=== PATIENT | female | born 1950 | race Caucasian/White ===

== ENCOUNTER → 2017-03-26 | Outpatient (CLI) | payer OTHER | LOC: BMCIMAGING 13:03 | PROVIDERS: ATTEND Internal Medicine | DX: Z12.31 Encounter for screening mammogram for malignant neoplasm of breast (principal) | CPT/HCPCS: G0202 ==

== ENCOUNTER 2017-09-25 15:34 | Inpatient (IN) | payer OTHER ==
[2017-09-25] MEDS ORDERED: ASPIRIN 81 MG CHEWABLE TAB PO ONE (15:48)
--- NOTE | 2017-09-25 15:59 | EDPHY ---
H & P Time Seen by Provider: 09/25/17 15:46 HPI/ROS: HPI Chest pain. 67-year-old female by private vehicle. She comes from the office of her primary care physician Dr. Felicia Del Castillo. She was seen for chest pain which she states she developed with exertion about 2 weeks ago while cross-country skiing. She reports that has been intermittent in nature and has been associated with exertion only up until several days ago when she noticed it just with walking. She describes this discomfort as a burning pressure like sensation mid upper chest. She has mild associated shortness of breath. Dr. Del Castillo described to me some concerning EKG changes. She has a negative troponin and negative D-dimer from her primary care physician's office. Cardiac risk factors include hypertension and family history. Her mother had heart disease. ROS: Constitutional: No fever, no chills. No weakness. Eyes: No discharge. No changes in vision. ENT: No sore throat. No nasal congestion or rhinorrhea. Respiratory: No cough. No shortness of breath. Cardiac: No chest pain, no palpitations. Gastrointestinal: No abdominal pain, no vomiting, no diarrhea. Genitourinary: No hematuria. No dysuria or increased frequency with urination. Musculoskeletal: No back pain. No neck pain. No myalgias or arthralgias. Skin: No rashes. Neurological: No headache. No focal weakness or altered sensation. Past medical history: Hypertension. She takes losartan for this. As above. Social history: Former smoker. Quit years ago. Drinks alcohol socially. Here with her . Physical Exam: General Appearance: Alert, no distress. This patient is responding to questions appropriately and in full sentences. This patient appears well- hydrated and well-nourished. Eyes: Pupils equal and round no pallor or injection. No lid edema, erythema or injection. Respiratory: There are no retractions, lungs are clear to auscultation with good air movement bilaterally. Cardiovascular: Regular rate and rhythm. No murmur. Gastrointestinal: Abdomen is soft and nontender, no masses, bowel sounds normal. No focal tenderness at McBurney's point. No Pino sign. Neurological: Motor sensory function is grossly intact. Cranial nerves are normal. Gait is normal. Skin: Warm and dry, no rashes. Musculoskeletal: Neck is supple and nontender. Extremities are symmetrical. All joints range without pain or impingement. Psychiatric: No agitation. No depression. Database: EKG: EKG time is 3:58 p.m.; EKG shows a narrow complex normal sinus rhythm with a ventricular rate of 51. Premature atrial complex noted. The HI, QRS, QT intervals are within normal limits. There are no ST-T wave changes indicative of ischemic or injury pattern. No evidence of right heart strain. Interpreted by me. Imaging: Chest x-ray AP portable; the cardiac mediastinal silhouette is unremarkable. No evidence of infiltrate or pneumothorax. No acute cardiopulmonary disease process noted. Interpreted by me. Procedures: Emergency department course: Vital signs reviewed. IV was placed. EKG was repeated and reviewed by myself. She currently does not have any chest pain. She was given 324 mg of chewed aspirin. A chest x-ray will be obtained. Discussed plan for admission. Patient consents. 4:20 p.m., patient re-evaluated. Resting comfortably at this time. Results of EKG and chest x-ray discussed with her and her . Plan for admission reviewed. They endorse. 4:30 p.m., spoke with on-call hospitalist, Dr. Alan. Case discussed in detail. He accepts this patient for admission. Patient's remaining emergency department course under my care uneventful. Patient admitted in stable condition to telemetry observation. Differential Diagnosis: The differential diagnosis on this patient includes but is not limited to exertional angina, acute coronary syndrome. Myocardial infarction, pulmonary embolism, myocarditis, pericarditis, aortic dissection unlikely. This represents a partial list of diagnoses considered. These considerations are based on history, physical exam, past history, reassessment and diagnostic testing. Smoking Status: Never smoked Constitutional: Initial Vital Signs Temperature (C) 37.0 C 09/25/17 15:41 Heart Rate 58 L 09/25/17 15:41 Respiratory Rate 16 09/25/17 15:41 Blood Pressure 176/99 H 09/25/17 15:41 O2 Sat (%) 97 09/25/17 15:41 O2 Delivery Mode Room Air Allergies/Adverse Reactions: codeine Allergy (Mild, Verified 09/25/17 16:15) Vomiting Home Medications: Medication Instructions Recorded Estradiol [Vivelle-Dot 0.075MG (*)] 0.075 mg TD SuWe@0800 09/25/17 Herbals/Supplements -Info Only 1 ea PO DAILY 09/25/17 Ibuprofen [Motrin (*)] 400 mg PO Q6H PRN 09/25/17 Losartan Potassium [Cozaar 25 mg 25 mg PO BID 09/25/17 (*)] Multivitamins [Multivitamin (*)] 1 each PO DAILY 09/25/17 Medical Decision Making - Data Points Medications Given: Discontinued Medications Aspirin (Aspirin) 324 mg PO EDNOW ONE Stop: 09/25/17 15:49 Last Admin: 09/25/17 16:02 Dose: 324 mg Departure - Departure Disposition: [facility] Inpatient Acute Clinical Impression: Chest pain Referrals: Felicia Del Castillo MD [Primary Care Provider] - As per Instructions
--- NOTE | 2017-09-25 16:00 | CPEKG ---
Heart Rate: 51 RR Interval: 1176 P-R Interval: 164 QRSD Interval: 76 QT Interval: 416 QTC Interval: 384 P [place]: -11 QRS [place]: 31 T Wave [place]: 40 EKG Severity - BORDERLINE ECG - EKG Impression: SINUS RHYTHM EKG Impression: ATRIAL PREMATURE COMPLEX EKG Impression: BORDERLINE T WAVE ABNORMALITIES Electronically Signed By: Adithya Mayer 25-Sep-2017 23:02:19
[2017-09-25] MEDS ORDERED: ONDANSETRON 4 MG/2 ML VIAL IVP PRN (16:31)
[2017-09-25] MEDS ORDERED: ONDANSETRON DISINTEGRATING 4 MG TAB PO PRN (16:31)
--- NOTE | 2017-09-25 17:19 | PDCONSULT ---
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 Felicia Del Castillo HPI: 67-year-old female presenting with acute chest pain characterized as burning sensation located in the upper anterior chest with onset of symptoms approximately 2 weeks ago, exacerbated with exertion, alleviated with rest. Patient reports that the symptoms have become particular noticeable during her weekend ski trips, and they have consistently occurred every time she exerts herself. The patient recently became concerned when she experienced the chest discomfort with very minimal ambulatory exertion, on the morning prior to this presentation. She went to see her primary care provider, had cardiac enzymes, D -dimer drawn, and was sent to the emergency department. She reports the discomfort is somewhat different than what she was experiencing 7 years ago when she had a workup for chest discomfort, consisting of a false positive EKG stress test, a reportedly normal nuclear medicine stress test, possible ASD on echocardiogram, an esophagram demonstrating some upper esophagus retention but no overt aspiration. She has not been taking any medications for acid reflux, and she takes ibuprofen on a daily basis for musculoskeletal aches and pains. Review of systems: Positive for chest discomfort, all other 10 point review systems is otherwise negative Past medical history: Previous history of chest discomfort approximately 7 years ago, unclear cause, palpitations 2 years ago, of abated without workup, chronic lower back pain Past surgical history: None, has never had a cardiac catheterization Social history: Patient smoked when she was in college, but has not smoked in many decades, she drinks 1-2 glasses of wine nightly, has never experienced alcohol withdrawal, she denies any other drugs, she is very physically active and has ski trip booked for the rest of the year every weekend Family history: Mother had a permanent pacemaker 70s, father had coronary artery disease in his 80s, no premature coronary disease Allergies: Adhesive tape produces hives, codeine produces vomiting, this is not a true allergy Physical exam: Systolic blood pressure 176, heart rate 58, temperature 37.0 degrees, SpO2 97% on room air, respiratory rate 16 General-no apparent distress, well-appearing woman, not obese Neuro-moving all 4 extremities, facial symmetry, alert awake oriented x3 Psych-no anxiety, no agitation, not encephalopathic HEENT-anicteric sclera, extraocular muscles intact Skin-no vesicular lesions or rash over the anterior chest Musculoskeletal-full range of motion bilateral shoulders without any pain, no tenderness to palpation over the anterior pectoralis muscles, full range of motion the neck without any pain Respiratory-lungs are clear to auscultation bilaterally, no crackles no wheezes Cardiac-regular rate and rhythm, no murmurs rubs or gallops appreciated, pulses are 2+ bilaterally Gastrointestinal-bowel sounds are present, abdomen is soft nontender nondistended no masses palpated Data: D-dimer negative, troponin negative, potassium 4.2, creatinine 0.8, white blood count 6800, hemoglobin 13.7 Imaging-normal chest x-ray, personally interpreted, EKG demonstrating normal sinus mechanism with a PC, personally interpreted Outside records-2010 esophagram demonstrating normal swallow, small retention the posterior pharynx, 03/26/2017 mammogram normal, read by Dimitri Vazquez Assessment: 67-year-old female presents with acute exertional chest pain Plan: 1. Chest pain. Acute, new problem this provider, further workup indicated. Potentially stable angina, with recent symptoms in the setting of very minimal exertion, raising the risk of worsening, warranting urgent evaluation -given patient's history of false positive EKG treadmill, will get nuclear medicine treadmill in the morning -initial troponin negative, does not require additional troponin measurement at this time, given that her last symptom was yesterday morning -educated the patient her if she experiences any recurrent symptoms overnight, she should notify the nurse immediately and we will draw cardiac enzymes and repeat EKG at that time -check lipid panel and hemoglobin A1c -monitor on telemetry for any potential arrhythmias which could be the potentiating cause of her discomfort -make NPO in a.m. for stress test, cardiac catheterization if stress test positive next-if stress test negative, hospital Medicine rounder to address non cardiopulmonary causes of chest discomfort in a.m. 2. Chronic lower back pain. Hold on use of NSAIDs overnight given potential for coronary artery disease, continue as needed Tylenol 3. Health maintenance screening. Patient and her have requested hepatitis C screening given that the patient has not had 1 performed in the past , this is appropriate given her age cohort Diet. Regular, NPO after midnight next prophylaxis. High risk patient, Lovenox 40 Code. Full Disposition. Anticipated discharge is 09/26, pending further workup as outlined above. I have discussed patient's presentation with Dr. Adithya Mayer in the emergency department, we both agree that the patient warrants urgent cardiac workup with stress testing in a.m.
[2017-09-25] MEDS: ACETAMINOPHEN 325 MG TAB PO PRN (21:47)
[2017-09-25] MEDS: LOSARTAN POTASSIUM 25 MG TAB PO SCH (21:48)
[2017-09-26 04:43] LABS: PLATELET COUNT 289 10^3/uL (150-400)
[2017-09-26 07:19] LABS: HEPATITIS B SURFACE ANTIGEN NEGATIVE (NEGATIVE)
[2017-09-26 07:25] LABS: HEPATITIS A ANTIBODY IGM (BCH) NEGATIVE (NEGATIVE); HEPATITIS B CORE AB IGM NEGATIVE (NEGATIVE)
[2017-09-26 07:37] LABS: HEPATITIS C ANTIBODY TOTAL NEGATIVE (NEGATIVE)
[2017-09-26] MEDS ORDERED: ESTRADIOL VIVELLE 0.075 MG PATCH TD SCH ×2 (08:00→20:00)
[2017-09-26] MEDS ORDERED: Herbals/Supplements -Info Only PO SCH (09:00)
[2017-09-26] MEDS: ASPIRIN EC 325 MG TAB PO SCH (09:06)
[2017-09-26] MEDS: LOSARTAN POTASSIUM 25 MG TAB PO SCH ×2 (09:06→21:37)
[2017-09-26] MEDS: MULTIVITAMINS 1 EACH TAB PO SCH (09:06)
[2017-09-26] MEDS: ENOXAPARIN 40 MG/0.4 ML SYR SC SCH (09:06)
--- NOTE | 2017-09-26 09:08 | ASMTCASEMG ---
Living Arrangements What is your living Answers: With Spouse arrangement? Who do you live with? Type Of Residence What kind of residence do Answers: House you live in? Discharge Plan Comments Coordination Status Comments Notes: Pt is a 67 y/o female admitted for chest pain. Pt will most likely d/c independent if her stress test comes back negative. No therapies ordered at this time. CM available for changes. Plan: Independent Date Signed: 09/26/2017 09:08 AM Electronically Signed By:VITO Herr
--- NOTE | 2017-09-26 13:57 | CPR ---
[f rep st] NONINVASIVE CARDIAC PROCEDURE REPORT DATE OF PROCEDURE: 09/26/2017 PROCEDURE: Exercise nuclear stress test. INDICATION: The patient is a 67-year-old female who developed burning chest discomfort while [employer] skiing up in [place] a few days ago. She then had some discomfort with downhill skiing and also noted some with hiking the other day. She has also had some exercise intolerance. Her risk factors for coronary artery disease include hypertension. She denies any history of hyperlipidemia, diabete s, ongoing tobacco use, or significant family history of premature coronary artery disease. PROCEDURE IN DETAIL: Consent was obtained, and the patient was placed on continuous telemetry. Her resting EKG revealed sinus bradycardia with a heart rate of 49 beats per minute. She has T-wave flat tening in the inferior leads as well as anterior lateral leads. She exercised on the treadmill for 9 minutes. She developed burning chest discomfort in the 2nd stage of exercise, which persisted until recovery. She had ST depression in the inferior leads of 2 mm as well as [address] elevation in AV R. Her ST-T changes and improved but did not completely recover 5 minutes into recovery. Her chest discomfort resolved within 30 minutes of recovery. Her blood pressure at rest was 138/80 and increas ed to 156/80. Returned to baseline 5 minutes into recovery. PLAN: Positive exercise treadmill test. I would have a low threshold to proceed with a coronary ang iogram. /[id number]/MODL
[2017-09-26] MEDS ORDERED: NITROGLYCERIN 0.4 MG BTL SL PRN (16:21)
[2017-09-26] MEDS ORDERED: TEMAZEPAM 15 MG CAP PO PRN (16:21)
[2017-09-26] MEDS ORDERED: ACETAMINOPHEN 325 MG TAB PO PRN (16:21)
--- NOTE | 2017-09-26 16:29 | PDCARCONS ---
Cardiology Consult Reason for Consult: Chest Pain. Chief Complaint: Chest Pain. Requesting Physician: Dr. Galeana. History of Present Illness: She is a pleasant 67-year-old female with no known cardiovascular disease. She has a benign cardiac risk factor profile and her baseline is very healthy. She has been experiencing symptoms of exertional chest discomfort now for approximately 2 weeks. These initially began when she was [employer] skiing up at [place]. At that time she developed a burning precordial chest discomfort when she was skiing on an uphill stretch. This lasted for about 20 minutes. At this point she reached the top of the hill, rested and her symptoms resolved. She was able to complete the rest of her route without difficulty. 2 days later she was at [facility] both scan with her and she developed similar symptoms. This occurred on a daily basis when she was downhill skiing for the 3 day trip. After this she went on vacation down to [place]. She noted that she had similar symptoms when she was walking briskly across the lobby of her hotel. She also had another event when she went hiking with her friend. She has had no resting symptoms. She denies palpitations. She has not had any dizziness or lightheadedness. She has noted no edema. She has not had any fever , chills or sweats and denies cough. She has not had any hemoptysis. As a result of these symptoms she went to see her primary care physician Dr. Cancino who advised her to come to the emergency department. She was admitted to the hospital where she has been stable. She underwent stress myocardial perfusion imaging today. On the treadmill portion she experienced a very mild burning precordial chest sensation. She also had [address] depressions in the inferior leads. Myocardial perfusion demonstrated reversible distal septal ischemia. History Information - Allergies/Home Medication List Allergies/Adverse Reactions: codeine Allergy (Mild, Verified 09/25/17 16:15) Vomiting Home Medications: Estradiol [Vivelle-Dot 0.075MG (*)] 0.075 mg TD SuWe@0800 09/25/17 [Last Taken 09/23/17] Herbals/Supplements -Info Only 1 ea PO DAILY 09/25/17 [Last Taken Unknown] Ibuprofen [Motrin (*)] 400 mg PO Q6H PRN 09/25/17 [Last Taken Unknown] Losartan Potassium [Cozaar 25 mg (*)] 25 mg PO BID 09/25/17 [Last Taken 09/25/17 ] Multivitamins [Multivitamin (*)] 1 each PO DAILY 09/25/17 [Last Taken 09/25/17] I have personally reviewed and updated: family history, medical history, social history, surgical history Past Medical History: - Social History Smoking Status: Never smoked Physical Exam Physical Exam: Temp Pulse Resp BP Pulse Ox 36.8 C 65 16 120/52 L 94 09/26/17 04:28 09/26/17 04:28 09/26/17 04:28 09/26/17 04:28 09/26/17 04:28 Constitutional: no apparent distress Eyes: PERRL Ears, Nose, Mouth, Throat: moist mucous membranes Cardiovascular: regular rate and rhythym, systolic murmur, No no murmur, rub, or gallop Peripheral Pulses: 2+: carotid (R), carotid (L) Respiratory: no respiratory distress, No clear to auscultation Gastrointestinal: normoactive bowel sounds, soft, non-tender abdomen, No hepatosplenomegally Skin: warm Neurologic: AAOx3 Lab and Imaging 09/26/17 03:28 09/26/17 03:28 WBC 7.24 10^3/uL (3.80-9.50) 09/26/17 03:28 RBC 3.66 10^6/uL (4.18-5.33) L 09/26/17 03:28 Hgb 12.7 g/dL (12.6-16.3) 09/26/17 03:28 Hct 36.3 % (38.0-47.0) L 09/26/17 03:28 MCV 99.2 fL (81.5-99.8) 09/26/17 03:28 MCH 34.7 pg (27.9-34.1) H 09/26/17 03:28 MCHC 35.0 g/dL (32.4-36.7) 09/26/17 03:28 RDW 12.2 % (11.5-15.2) 09/26/17 03:28 Plt Count 289 10^3/uL (150-400) 09/26/17 03:28 MPV 9.3 fL (8.7-11.7) 09/26/17 03:28 Neut % (Auto) 49.1 % (39.3-74.2) 09/26/17 03:28 Lymph % (Auto) 36.5 % (15.0-45.0) 09/26/17 03:28 Mccracken % (Auto) 10.2 % (4.5-13.0) 09/26/17 03:28 Eos % (Auto) 2.9 % (0.6-7.6) 09/26/17 03:28 Baso % (Auto) 1.0 % (0.3-1.7) 09/26/17 03:28 Nucleat RBC Rel Count 0.0 % (0.0-0.2) 09/26/17 03:28 Absolute Neuts (auto) 3.56 10^3/uL (1.70-6.50) 09/26/17 03:28 Absolute Lymphs (auto) 2.64 10^3/uL (1.00-3.00) 09/26/17 03:28 Absolute Monos (auto) 0.74 10^3/uL (0.30-0.80) 09/26/17 03:28 Absolute Eos (auto) 0.21 10^3/uL (0.03-0.40) 09/26/17 03:28 Absolute Basos (auto) 0.07 10^3/uL (0.02-0.10) 09/26/17 03:28 Absolute Nucleated RBC 0.00 10^3/uL (0-0.01) 09/26/17 03:28 Immature Gran % 0.3 % (0.0-1.1) 09/26/17 03:28 Immature Gran # 0.02 10^3/uL (0.00-0.10) 09/26/17 03:28 Sodium 141 mEq/L (135-145) 09/26/17 03:28 Potassium 4.3 mEq/L (3.5-5.2) 09/26/17 03:28 Chloride 105 mEq/L (97-110) 09/26/17 03:28 Carbon Dioxide 27 mEq/l (22-31) 09/26/17 03:28 Anion Gap 9 mEq/L (8-16) 09/26/17 03:28 BUN 12 mg/dL (7-23) 09/26/17 03:28 Creatinine 0.7 mg/dL (0.6-1.0) 09/26/17 03:28 Estimated GFR > 60 09/26/17 03:28 Glucose 80 mg/dL (70-100) 09/26/17 03:28 Hemoglobin A1c 5.5 % (4.0-6.0) 09/25/17 16:04 Estim Average Glucose 111 mg/dL (68-126) 09/25/17 16:04 Calcium 8.9 mg/dL (8.5-10.4) 09/26/17 03:28 Magnesium 2.2 mg/dL (1.6-2.3) 09/26/17 03:28 Total Bilirubin 0.6 mg/dL (0.1-1.4) 09/26/17 03:28 AST 18 IU/L (14-46) 09/26/17 03:28 ALT 30 IU/L (9-52) 09/26/17 03:28 Alkaline Phosphatase 41 IU/L (38-126) 09/26/17 03:28 Troponin I < 0.012 ng/mL (0.000-0.034) 09/26/17 03:28 Total Protein 6.2 g/dL (6.3-8.2) L 09/26/17 03:28 Albumin 3.7 g/dL (3.5-5.0) 09/26/17 03:28 Triglycerides 68 mg/dL (35-135) 09/26/17 03:28 Cholesterol 182 mg/dL (140-220) 09/26/17 03:28 Cholesterol Risk Factr 0.4 (0.2-1.0) 09/26/17 03:28 LDL Cholesterol, Calc 93 mg/dL (80-100) 09/26/17 03:28 LDL Risk Factor 0.5 (0.2-1.0) 09/26/17 03:28 VLDL Cholesterol 13 mg/dL (8-25) 09/26/17 03:28 Non-HDL Cholesterol 106 mg/dL (90-129) 09/26/17 03:28 HDL Cholesterol 76 mg/dL (40-85) 09/26/17 03:28 LDL/HDL Ratio 1.22 RATIO (1.00-3.22) 09/26/17 03:28 Cholesterol/HDL Ratio 2.39 RATIO (1.00-4.44) 09/26/17 03:28 TSH 3.700 uIU/mL (0.465-4.680) 09/26/17 03:28 Hepatitis A IgM Ab NEGATIVE (NEGATIVE) 09/26/17 03:28 Hep Bs Antigen NEGATIVE (NEGATIVE) 09/26/17 03:28 Hep B Core IgM Ab NEGATIVE (NEGATIVE) 09/26/17 03:28 Hepatitis C Antibody NEGATIVE (NEGATIVE) 09/26/17 03:28 Visualized and Interpreted Chest x-ray results: Yes Visualized and Interpreted EKG results: Yes EKG Interpretation: Positive for: normal sinsus rhythm Telemetry: Normal sinus rhythm. A/P Assessment: 67-year-old female who, at her baseline, is very healthy and very active who over the last 2 weeks has manifested symptoms of crescendo angina. Her stress myocardial perfusion imaging indicates reversible ischemia in the distribution of the left anterior descending currently, her symptoms are low level. Her stress myocardial perfusion imaging is consistent with an intermediate risk profile. As result of her myocardial perfusion imaging study and the degree of symptomatology was recommended that she undergo diagnostic coronary angiography tomorrow. The risks, benefits and alternatives were discussed with her today. She agrees to proceed. Further recommendations will be made pending the results of that study.
--- NOTE | 2017-09-26 18:13 | HOSPPROG ---
Hospitalist Progress Note Assessment/Plan: #Chest pressure: nuc med show septal ischemia. Plan for cath in morning. Check lipids -cont telemetry #Diet: NPO after MN #Disp: warrants inpt admission for cardiac cath Subjective: no chest pressure today Objective: Vital Signs Temp Pulse Resp BP Pulse Ox 37.2 C 66 13 140/65 H 95 09/26/17 16:34 09/26/17 16:34 09/26/17 16:34 09/26/17 16:34 09/26/17 16:34 Laboratory Results 09/26/17 03:28 09/26/17 03:28 09/25/17 09/26/17 09/27/17 05:59 05:59 05:59 Intake Total 0 Balance 0 - Physical Exam Constitutional: no apparent distress Eyes: PERRL Ears, Nose, Mouth, Throat: moist mucous membranes Cardiovascular: regular rate and rhythym, no murmur, rub, or gallop Respiratory: no respiratory distress, no rales or rhonchi Gastrointestinal: normoactive bowel sounds, soft, non-tender abdomen Musculoskeletal: full muscle strength Neurologic: AAOx3, CN II-XII Intact Psychiatric: interacting appropriately ICD10 Worksheet Patient Problems: Problems Problem Status Onset Chest pain Acute
[2017-09-26] MEDS: ACETAMINOPHEN 325 MG TAB PO PRN (21:37)
[2017-09-27 04:33] LABS: PLATELET COUNT 307 10^3/uL (150-400)
[2017-09-27 04:45] LABS: INR 1.02 (0.83-1.16); PROTIME(PATIENT) 13.6 SEC (12.0-15.0)
[2017-09-27] MEDS ORDERED: diphenhydrAMINE 25 MG CAP PO ONE ×2 (06:00→10:30)
[2017-09-27] MEDS ORDERED: ASPIRIN EC 325 MG TAB PO ONE ×2 (06:00→10:30)
[2017-09-27] MEDS ORDERED: NS 1,000 ML IV ONE (06:00)
[2017-09-27] MEDS ORDERED: FAMOTIDINE 20 MG TAB PO ONE ×2 (06:00→10:30)
[2017-09-27] MEDS ORDERED: DIAZEPAM 5 MG TAB PO ONE ×2 (06:00→10:30)
--- NOTE | 2017-09-27 06:34 | PDMN ---
Medical Necessity Medical necessity: change to IP; los>2mn for ongoing eval and rx for chest pressure , with nuc med test positive for septal ischemia; requires cardiac cath and continued telemetry; per order and progress note 09/26/17
--- NOTE | 2017-09-27 08:44 | CPEKG ---
Heart Rate: 46 RR Interval: 1304 P-R Interval: 180 QRSD Interval: 74 QT Interval: 452 QTC Interval: 396 P [place]: 18 QRS [place]: 33 T Wave [place]: 55 EKG Severity - BORDERLINE ECG - EKG Impression: SINUS BRADYCARDIA EKG Impression: BORDERLINE T ABNORMALITIES, ANT-LAT LEADS Electronically Signed By: Kvng Early 29-Sep-2017 08:25:26
--- NOTE | 2017-09-27 09:39 | PDPROPOC ---
Sedation Plan of Care Sedation Plan of Care: vital signs stable, mental status noted, patient educated of risks, benefits, alternatives, patient can tolerate sedation ASA Classification: ASA 2 Planned drugs: fentanyl, midazolam Mallampati Score: Class 1 Mallampati Reference Image: Patient passed 3-3-2 rule?: Yes
--- NOTE | 2017-09-27 09:39 | PDHPUP ---
History & Physical Update H&P update statement: This history and physical update is based on an assessment of the patient which was completed after admission or registration (within 24 hours), but prior to the surgery/procedure. H&P update: H&P reviewed & patient examined, no change in patient's condition since H&P completed
[2017-09-27] MEDS ORDERED: LIDOCAINE 1% 300 MG/30 ML SDV ONE (10:24)
[2017-09-27] MEDS ORDERED: fentaNYL 100 MCG/2 ML INJ ONE (10:24)
[2017-09-27] MEDS ORDERED: MIDAZOLAM 2 MG/2 ML VIAL ONE ×2 (10:25)
[2017-09-27] MEDS ORDERED: IOPAMIDOL (ISOVUE-370) 150 ML BTL IV ONE (10:25)
[2017-09-27] MEDS ORDERED: HEPARIN 10,000 UNIT/10 ML MDV (1,000 UNIT/ML) ONE ×2 (10:25→11:59)
[2017-09-27] MEDS ORDERED: VERAPAMIL 5 MG/2 ML VIAL ONE (10:25)
--- NOTE | 2017-09-27 11:26 | PDDXCAT ---
Diagnostic Cath Note - . Date: 09/27/17 Special Education Assistant: Rose Marie Indication: other (New onset crescendo angina. Abnormal stress myocardial perfusion imaging study with intermediate risk features suggesting disease of the left anterior descending coronary artery.) - Procedure Access: right wrist Procedure: left heart catheterization, coronary angiography, left ventriculogram - Materials Left Heart Cath size: 5F Left Heart Cath materials: JL3.5, JR4.0, pigtail - Findings-Left Heart Catheterization LM: Moderate caliber vessel which appears to be about 3.0 mm. Appropriate bifurcation into the left anterior descending and circumflex. No angiographic disease. LAD: Moderate caliber vessel. Single principal diagonal branch. High-grade (80 %) lesion in the mid LAD immediately distal to the 1st diagonal which is the principal diagonal branch. The ostium of this diagonal branch is not directly involved in this lesion and contains a 20% lesion. LCX: Moderate caliber vessel in the proximal segment. Becomes diminutive immediately after the origin of a multi branching obtuse marginal. Minimal luminal irregularities without obstruction. RCA: Moderate caliber vessel. Dominant in appearance. The PDA and a small- caliber posterolateral arcade are noted. Luminal irregularities with no obstruction. EDP: 107/12/17 mmHg. LVEF: 60-65%. Wall motion: Normal wall motion. - Findings-Right Heart Catheterization AO: 99/52/73 mmHg. Complications: None. Estimated blood loss: <50ml Assessment: 1. Clinical presentation with crescendo angina. 2. Stress myocardial perfusion imaging study demonstrating ischemia in the distribution of the left anterior descending. 3. Angiography indicating a high-grade mid LAD lesion. 4. Preserved left ventricular systolic function with no wall motion abnormalities. 5. Mildly elevated end-diastolic pressure. Plan: She will be referred to my partner Dr. Pelon Strauss for percutaneous intervention of the LAD. Patient Problems: Problems Problem Status Onset Chest pain Acute
[2017-09-27] MEDS ORDERED: NITROGLYCERIN 1,500 MCG/15 ML VIAL MISC ONE ×2 (11:29→11:39)
[2017-09-27] MEDS ORDERED: PRASUGREL HCL 10 MG TAB ONE (12:03)
[2017-09-27] MEDS ORDERED: ADENOSINE 90 MG/30 ML VIAL IV ONE (12:06)
[2017-09-27] MEDS ORDERED: PRASUGREL HCL 10 MG TAB PO ONE (12:29)
[2017-09-27] MEDS ORDERED: ATROPINE SULFATE 1 MG/10 ML SYR IVP PRN (12:29)
--- NOTE | 2017-09-27 12:29 | HOSPPROG ---
Hospitalist Progress Note Assessment/Plan: #Chest pressure: nuc med show septal ischemia. -mid-LAD lesion stented. Effient, ASA 325mg, statin. No BB with bradycardia -cont telemetry #Diet: cardiac #Disp: warrants inpt admission tonight for telemetry, can likely DC in morning Subjective: no CP Objective: Vital Signs Temp Pulse Resp BP Pulse Ox 36.9 C 54 L 16 117/68 93 09/27/17 07:06 09/27/17 07:06 09/27/17 07:06 09/27/17 07:06 09/27/17 07:06 Laboratory Results 09/27/17 03:19 09/27/17 03:19 09/26/17 09/27/17 09/28/17 05:59 05:59 05:59 Intake Total 740 Balance 740 PT 13.6 SEC (12.0-15.0) 09/27/17 03:19 INR 1.02 (0.83-1.16) 09/27/17 03:19 - Physical Exam Constitutional: no apparent distress Ears, Nose, Mouth, Throat: moist mucous membranes Cardiovascular: regular rate and rhythym, No edema Respiratory: no respiratory distress Gastrointestinal: normoactive bowel sounds Genitourinary: no bladder fullness Skin: warm Musculoskeletal: full muscle strength, other (radial cath site with good pulse, no hematoma) Neurologic: AAOx3 Psychiatric: interacting appropriately ICD10 Worksheet Patient Problems: Problems Problem Status Onset Chest pain Acute
--- NOTE | 2017-09-27 12:37 | PDCTREPORT ---
Cardiothoracic Procedure Rpt Cardiothoracic Procedure Report: Procedure: Primary stenting of the proximal LAD followed by intravascular ultrasound and assessment of left main stenosis by fractional flow reserve. Indications: Critical proximal LAD disease with crescendo angina and abnormal treadmill. Narrative: After reviewing diagnostic angiograms by my partner Dr. Trotter was elected to proceed with PCI. Patient was anticoagulated with heparin. Attempts at accessing the LAD from the radial artery were made but the wire and catheter would not advance be on the mid forearm. In light of critical stenosis of the LAD the radial artery access site was abandoned. A 6 Persian sheath was inserted in the right femoral artery. Using a 6 Persian EBU 3.5 guiding catheter left main coronary selectively intubated. Using a 0.014 intuition wire the LAD stenosis was crossed and a wire placed in the distal vessel. A 3.0 x 24 mm synergy stent was placed across the lesion. Position confirmed in two views and deployed using a single inflation. Repeat angiogram showed step-up step-down. Distal to the stent a myocardial bridge became more apparent. Patient was administered intracoronary nitroglycerin. The wire was withdrawn revealing a mid LAD myocardial bridge. I want to confirm this diagnosis as well as reassess LAD stent size. Intravascular ultrasound was performed with slow pullback confirming a mid LAD bridge. The stent was well apposed. Proximal to the stent was significant soft atheroma seen with what appears to be a necrotic core. This plaque extended back into the left main giving us a 68% by Q CA stenosis of the distal left main. The area was 6.8 mm2. Films were reviewed with my partner Dr. Trotter and Dr. Gant. We proceeded with fractional flow reserve assessment of the left main and LAD. After maximal hyperemia achieved with intravenous adenosine FFR was 0.93. Wires were withdrawn. Final orthogonal angiograms were obtained. The patient is taken to recovery for continued care. Arteriotomy will be closed with an Angio-Seal. The radial artery arteriotomy will be closed with a TR band. Patient be loaded with Effient as a antiplatelet agent. High-dose statin therapy Vamsi inhibition beta-blockade with close clinical follow-up. Conclusions: Unstable angina status post successful PCI and stenting of the proximal LAD. Residual soft atheroma involving the proximal and ostial LAD and left main coronary artery. Myocardial bridge. Results discussed with patient and family. Patient Problems: Problems Problem Status Onset Chest pain Acute
--- NOTE | 2017-09-27 13:00 | CPEKG ---
Heart Rate: 42 RR Interval: 1429 P-R Interval: 192 QRSD Interval: 82 QT Interval: 484 QTC Interval: 405 P Perry: 43 QRS Perry: 34 T Wave Perry: 14 EKG Severity - ABNORMAL ECG - EKG Impression: SINUS BRADYCARDIA EKG Impression: NONSPECIFIC T ABNORMALITIES, ANTERIOR LEADS Electronically Signed By: Kvng Early 29-Sep-2017 08:25:32
--- NOTE | 2017-09-27 15:20 | SOAPPROG ---
EMIL Progress Note Assessment/Plan: Assessment: 67-year-old female with minimal cardiovascular risk factors presents with classic symptoms of crescendo angina. Myocardial perfusion imaging suggests LAD territory ischemia. She really has very little blood pressure and heart rate that would allow aggressive antianginal therapy. Additionally, her study is clearly intermediate risk. Therefore, we will proceed with coronary angiography for definitive diagnosis. Further recommendations will be made following that study. 09/27/17 15:20 Subjective: She is doing well today. She did not have any chest discomfort overnight. Cardiac enzymes remain negative. Objective: Vital Signs Temp Pulse Resp BP Pulse Ox 36.9 C 54 L 16 117/68 93 09/27/17 07:06 09/27/17 07:06 09/27/17 07:06 09/27/17 07:06 09/27/17 07:06 Laboratory Results 09/27/17 03:19 09/27/17 03:19 09/26/17 09/27/17 09/28/17 05:59 05:59 05:59 Intake Total 740 Balance 740 PT 13.6 SEC (12.0-15.0) 09/27/17 03:19 INR 1.02 (0.83-1.16) 09/27/17 03:19 Physical Exam - Physical Exam General Appearance: WD/WN, no apparent distress Neck: non-tender, full range of motion Respiratory: lungs clear, No crackles, No rales, No rhonchi Cardiac/Chest: regular rate, rhythm, No edema, No gallop, No JVD Peripheral Pulses: 2+: carotid (R), carotid (L) Abdomen: non-tender, soft Pelvic Exam: deferred Rectal: deferred Neuro/Psych: alert, oriented x 3 ICD10 Worksheet Patient Problems: Problems Problem Status Onset Chest pain Acute
[2017-09-27] MEDS: ASPIRIN EC 325 MG TAB PO SCH (17:24)
[2017-09-27] MEDS: ENOXAPARIN 40 MG/0.4 ML SYR SC SCH (17:25)
[2017-09-27] MEDS: ATORVASTATIN CALCIUM 40 MG TAB PO SCH (17:39)
[2017-09-27] MEDS: MULTIVITAMINS 1 EACH TAB PO SCH (17:39)
[2017-09-27] MEDS: CETIRIZINE 10 MG TAB PO SCH (17:39)
[2017-09-27] MEDS: LOSARTAN POTASSIUM 25 MG TAB PO SCH ×2 (17:39→20:14)
[2017-09-27] MEDS: ACETAMINOPHEN 325 MG TAB PO PRN ×2 (17:46→22:54)
[2017-09-28 06:31] LABS: PLATELET COUNT 278 10^3/uL (150-400)
[2017-09-28 08:51] VITALS: BP 135/83; PULSE 65; RESP 14; TEMP 98.4; O2SAT 96
[2017-09-28] MEDS ORDERED: PRASUGREL HCL 10 MG TAB PO SCH (09:00)
--- NOTE | 2017-09-28 09:17 | CPEKG ---
Heart Rate: 61 RR Interval: 984 P-R Interval: 160 QRSD Interval: 76 QT Interval: 376 QTC Interval: 379 P Fairmont: 23 QRS Fairmont: 26 T Wave Fairmont: 51 EKG Severity - BORDERLINE ECG - EKG Impression: SINUS RHYTHM EKG Impression: BORDERLINE T ABNORMALITIES, ANT-LAT LEADS Electronically Signed By: Kvng Early 29-Sep-2017 08:25:36
--- NOTE | 2017-09-28 09:40 | PDCARPN ---
Cardiology Progress Note Assessment/Plan: Assessment: She is doing well following PCI/ stenting of her mid LAD . She does have fairly extensive plaque noted on intravascular ultrasound specifically at the ostium of the LAD and distal left main. She was further evaluated with fractional flow reserve without any indication of obstructive disease. This is , however, concerning And certainly warrants very aggressive medical therapy. She will continue with dual anti-platelet therapy for the next year. She will also be treated with very aggressive antihyperlipidemic therapy. She was started on Lipitor 80 mg which he will take before bed. At this point I think she can gradually start to ramp up her activity level. She has been enrolled in cardiac rehab. She is stable for discharge. I would like her to follow up with me within the next 2 weeks. Subjective: She is doing well today. She has not had any chest discomfort. She has minimal pain at the right radial access site and right groin access site. On telemetry she has been bradycardic. There are periods of time where she may have a junctional rhythm. She has, however, not experienced any significant symptoms. Objective: Vital Signs (8 Hrs) Temp Pulse Resp BP Pulse Ox 09/28/17 08:46 36.9 C 65 14 135/83 H 96 09/28/17 05:00 37.0 C 59 L 18 127/68 H 95 Intake/Output (24 Hrs) 09/27/17 09/28/17 09/29/17 05:59 05:59 05:59 Intake Total 740 1640 Balance 740 1640 Intake: Oral (ml) 740 1640 IV Intake (ml) 0 Other: Weight 62.1 kg 62.1 kg Intake Quantity npo Yes Sufficient Number of Voids Toilet 1 2 2 Number of Stools Toilet 2 Result Diagrams: 09/28/17 06:19 09/28/17 06:19 - Physical Exam Constitutional: WDWN Ears, Nose, Mouth, Throat: moist mucous membranes Cardiovascular: regular rate and rhythm, no murmurs, no rubs, no gallops, other (Right radial and right groin access sites are intact with minimal ecchymoses, she has no right femoral arterial bruit) Peripheral Pulses: 2+: carotid (R), carotid (L) Respiratory: clear to auscultate bilat Neurologic: AAOx3 ICD10 Worksheet Patient Problems: Problems Problem Status Onset Chest pain Acute
[2017-09-28] MEDS: CETIRIZINE 10 MG TAB PO SCH (09:45)
[2017-09-28] MEDS: ASPIRIN EC 325 MG TAB PO SCH (09:45)
[2017-09-28] MEDS: MULTIVITAMINS 1 EACH TAB PO SCH (09:45)
[2017-09-28] MEDS: ATORVASTATIN CALCIUM 40 MG TAB PO SCH (09:45)
[2017-09-28] MEDS: LOSARTAN POTASSIUM 25 MG TAB PO SCH (09:46)
[2017-09-28] MEDS: ENOXAPARIN 40 MG/0.4 ML SYR SC SCH (09:47)
--- NOTE | 2017-09-28 11:45 | ASDISCHSUM ---
Discharge Information Plan Status:Home with No Needs Medically Cleared to Leave:09/27/2017 Discharge Date:09/27/2017 CM D/C Disposition:Home, Routine, Self-Care ADT D/C Disposition:Home, Routine, Self-Care Projected Discharge Date:09/27/2017 Transportation at D/C: Discharge Delay Reason: Follow-Up Date:09/27/2017 Discharge Slot: Final Diagnosis: Placement Information Patient Contact Information Contact Name:KIRSTEN Relationship: Address:[address] City:[place] Alternate Phone: [facility]/Zip Code:[place] [address] Email: Financial Information Financial Class:Medicare Primary Plan Desc:MEDICARE INPATIENT Primary Plan Number:[id number] Secondary Plan Desc:KASIA LA O Secondary Plan Number:[id number] Assessment Information [facility] Initial CM Assessment Living Arrangements What is your living Answers: With Spouse arrangement? Who do you live with? Type Of Residence What kind of residence do Answers: House you live in? Discharge Plan Comments Coordination Status Comments Notes: Pt is a 67 y/o female admitted for chest pain. Pt will most likely d/c independent if her stress test comes back negative. No therapies ordered at this time. CM available for changes. Plan: Independent Date Signed: 09/26/2017 09:08 AM Electronically Signed By:VITO Herr LACE LACE Comorbidities - select Answers: Other Notes: hypertension all that apply # of Emergency department Answers: 0 visits in the last 6 months Score: 1 Date Signed: 09/28/2017 11:44 AM Electronically Signed By:Lotus Harp RN Intervention Information Intervention Type:*SIMMONS-Signed Date of Service:09/26/2017 10:02 AM Patient Type:Observation Staff Member:Vivian Wakefield Hours: Discipline: Severity: Comment:
--- NOTE | 2017-09-28 12:27 | PDDCSUM ---
Discharge Summary Discharge Summary: 67 Yo female admitted with crescendo angina. Had Stent placed to proximal LAD. Large plaque at ostrum of LAD. Cards has recommended aggressive medical mgmt. Had some bradycardia and therefore BB not started Start Atorvastatin 80mg daily Aspirin 325mg daily Effient Coozar f/u with Cards DDX: #Chest pressure: nuc med show septal ischemia. -mid-LAD lesion stented. Effient, ASA 325mg, statin, ARB. No BB with bradycardia Exam: NAD AAOX3 RRR CTA B S/NT/ND MEDS: SEE MED REC F/U: WITH CARDS TOTAL TIME SPENT ON DC INCLUDING BEDSIDE ROUNDS WITH NURSE IS 35 MINS
== END 2017-09-28 12:40 | disposition home or self-care (01) | DRG 247 ==
LOC: F2W 18:14 → OBSVTOIN 09-26 17:30
PROVIDERS: ADMIT Internal Medicine; ATTEND Internal Medicine
PROC: 027034Z Dilation of Coronary Artery, One Artery with Drug-eluting Intraluminal Device, Percutaneous Approach (ICD-10-PCS; principal; 2017-09-27)
PROC: B2151ZZ Fluoroscopy of Left Heart using Low Osmolar Contrast (ICD-10-PCS; 2017-09-27)
PROC: B2111ZZ Fluoroscopy of Multiple Coronary Arteries using Low Osmolar Contrast (ICD-10-PCS; 2017-09-27)
PROC: 4A023N8 Measurement of Cardiac Sampling and Pressure, Bilateral, Percutaneous Approach (ICD-10-PCS; 2017-09-27)
DX: I25.110 Atherosclerotic heart disease of native coronary artery with unstable angina pectoris (principal); I10 Essential (primary) hypertension; G89.29 Other chronic pain; Z87.891 Personal history of nicotine dependence; Z82.49 Family history of ischemic heart disease and other diseases of the circulatory system
CPT/HCPCS: A9500; C1753; C1760; C1769; C1874; C1887; C9600; G0378; G0472; J0153; J1644; J1650; J2250; J3010; Q9967

== ENCOUNTER 2018-07-27 12:45 | Inpatient (IN) | payer OTHER ==
[2018-07-27] MEDS ORDERED: ASPIRIN 81 MG CHEWABLE TAB PO ONE (13:25)
--- NOTE | 2018-07-27 13:26 | CPEKG ---
Test Reason : OPEN Blood Pressure : / mmHG Vent. Rate : 061 BPM Atrial Rate : 061 BPM P-R Int : 159 ms QRS Dur : 076 ms QT Int : 416 ms P-R-T Axes : -08 012 037 degrees QTc Int : 419 ms Sinus rhythm Confirmed by He Miller ([id number]) on 07/27/2018 1:26:05 PM Referred By: Confirmed By:He Miller
--- NOTE | 2018-07-27 13:28 | EDPHY ---
H & P Time Seen by Provider: 07/27/18 12:58 HPI/ROS: CHIEF COMPLAINT: Chest pain HISTORY OF PRESENT ILLNESS: The patient is a 68-year-old female with a history of coronary artery disease and stent placement in September 2017. Patient states she had surgery for bladder suspension approximately 5 weeks ago. She has slowly increased her activity. Last night she was walking up a [place] to a show at [place] [employer]. She developed substernal chest burning and pressure. She stopped in improved. She had to stop 2 more times while walking up the hill. Patient denies any chest pain at this time. No shortness of breath. No cough. No leg pain or swelling. REVIEW OF SYSTEMS: 10 systems were reveiwed and are negative with the exception of the elements mentioned in the history of present illness. Past Medical/Surgical History: Includes coronary artery disease, esophageal spasm, hypertension, bladder prolapse Past surgical history: Includes bladder suspension Social history: Patient does not smoke Smoking Status: Never smoked Physical Exam: Vitals noted GENERAL: Well-appearing, in no acute distress, alert. HEENT: Eyes normal to inspection, normal pharynx, no signs of dehydration. NECK: Normal, supple. RESPIRATORY: Clear to auscultation bilaterally, no rales, rhonchi or wheezing. CVS: Regular rate and rhythm, no rubs, murmurs, or gallops. ABDOMEN: Soft, nontender, nondistended, no organomegaly. BACK: Normal to inspection, no CVA tenderness. SKIN: Normal color, no rash, warm, dry. No pallor. EXTREMITIES: No pedal edema, no calf tenderness, no Homans sign or cords, no joint swelling. NEURO/PSYCH: Alert and oriented, normal mood and affect, normal motor sensory exam. Constitutional: Initial Vital Signs Temperature (C) 36.8 C 07/27/18 12:49 Heart Rate 65 07/27/18 12:49 Respiratory Rate 18 07/27/18 12:49 Blood Pressure 141/79 H 07/27/18 12:49 O2 Sat (%) 98 07/27/18 12:49 O2 Delivery Mode Room Air Allergies/Adverse Reactions: codeine Allergy (Mild, Verified 09/25/17 16:15) Vomiting adhesive Allergy (Verified 07/27/18 12:48) Home Medications: Medication Instructions Recorded Estradiol [Vivelle-Dot 0.075MG (*)] 0.075 mg TD SuWe@0800 09/25/17 Herbals/Supplements -Info Only 1 ea PO DAILY 09/25/17 Losartan Potassium [Cozaar 25 mg 25 mg PO BID 09/25/17 (*)] Multivitamins [Multivitamin (*)] 1 each PO DAILY 09/25/17 Aspirin EC [Aspirin EC 325 mg (*)] 325 mg PO DAILY #30 tab 09/28/17 Medical Decision Making ED Course/Re-evaluation: In the emergency department I discussed possible etiologies with the patient and . I answered all her questions. IV was placed. Laboratory studies , EKG and chest x-ray were ordered. Patient was given aspirin 324 mg orally. EKG shows normal sinus rhythm, normal rate, normal axis, normal intervals. There are no ST or T-wave abnormalities. EKG is normal as interpreted by me. Differential Diagnosis: My differential includes but is not limited to ACS, acute DC, PE, pericarditis, myocarditis, esophageal spasm, GERD, peptic ulcer disease Departure - Departure Disposition: [facility] Inpatient Acute Clinical Impression: Chest pain Qualifiers: Chest pain type: unspecified Qualified Code(s): R07.9 - Chest pain, unspecified Condition: Good Referrals: Felicia Del Castillo MD [Primary Care Provider] - As per Instructions
[2018-07-27 13:55] LABS: INR 0.99 (0.83-1.16); PROTIME(PATIENT) 13.3 SEC (12.0-15.0)
[2018-07-27 14:08] LABS: PLATELET COUNT 354 10^3/uL (150-400)
--- NOTE | 2018-07-27 16:19 | GHP ---
DATE OF ADMISSION: 07/27/2018 CHIEF COMPLAINT: Chest pain. HISTORY OF PRESENT ILLNESS: This is a 68-year-old female with a history of coronary artery disease s tatus post percutaneous coronary intervention in September of this year who presents with chest pain. This occurred last night when she was walking up the hill to go to a show at [facility]. Desc ribed as a burning substernal, not associated with any shortness of breath, not radiating. This is e xactly like the pain she experienced that led her to get her previous stent. She has noticed this pa in occasionally now. It does seem to be exertional. It does resolve with rest. Notably, she was ad mitted here in September, at which point she had a stent placed to her mid LAD. Also noted was a dist al left main lesion as well as an ostial LAD lesion, which were not intervened upon after FFR. She h as been maintained on medical therapy. She follows with Dr. Trotter, who stopped her Effient last st after she noted severe bruising. She is compliant with aspirin at this time. She has not tolerat ed a beta arik due to bradycardia. PAST MEDICAL/SURGICAL HISTORY: 1. Coronary artery disease. 2. Recent bladder suspension. 3. Chronic low back pain. MEDICATIONS: Please see medication reconciliation. ALLERGIES: Adhesive tape. Codeine, which produces vomiting, though is not a real allergy. FAMILY HISTORY: Her mother had a permanent pacemaker, lived to her 90s. SOCIAL HISTORY: She quit smoking over 40 years ago. She drinks wine occasionally. REVIEW OF SYSTEMS: 10-point review of systems is conducted and is negative except per HPI. PHYSICAL EXAM: VITAL SIGNS: Blood pressure 137/85, heart rate 59, respiration rate 16, satting at 9 6% on room air. Temperature is 36.8. GENERAL: The patient is a very pleasant female who is resting comfortably in no acute distress. HEENT: Normocephalic, atraumatic. CARDIOVASCULAR: Regular rate and rhythm. No murmurs, rubs, or gallops. No elevated JVD. No lower extremity edema. PULMONARY: Shows her to be breathing comfortably. Lungs are clear to auscultation bilaterally. ABDOMEN: Soft , nontender, nondistended. SKIN: Shows no rash. : No Nichols. NEUROLOGIC: Alert and oriented x3 . She is moving all extremities. PSYCHIATRIC: Normal mood and affect. LABS: White count is 9.8, INR 0.99. Basic metabolic panel is normal. Troponin is negative. DATA: 1. Discussed with Dr. Early, and he will consult. 2. Chest x-ray, which I personally viewed and interpreted, shows normal heart size. There is nothin g acute on here. 3. EKG, which I personally viewed and interpreted, shows sinus rhythm. It is nonischemic. IMPRESSION AND PLAN: Chest pain/coronary artery disease: Concerning for recurrent angina. She did have previous abnormalities on her last catheterization which were not intervened upon after fraction al flow reserve. I have discussed all this with Dr. Early. He will evaluate her films and consider catheterization versus Cardiothoracic Surgery consult. We will place her on progressive care unit, monitor on telemetry, get 2 more sets of cardiac enzymes. This is a high-risk diagnosis. Will rashi nue her cardiac medications. /[id number]/MODL
[2018-07-27] MEDS: PRAVASTATIN SODIUM 10 MG TAB PO SCH (20:38)
[2018-07-27] MEDS: LOSARTAN POTASSIUM 25 MG TAB PO SCH (20:38)
[2018-07-27] MEDS: POLYETHYLENE GLYCOL 3350 17 GM PKT PO PRN (20:47)
[2018-07-27] MEDS: LORazepam 1 MG TAB PO PRN (22:46)
[2018-07-28] MEDS: LOSARTAN POTASSIUM 25 MG TAB PO SCH ×2 (08:28→20:04)
[2018-07-28] MEDS: ESTRADIOL VIVELLE 0.075 MG PATCH TD SCH (08:29)
[2018-07-28] MEDS: ASPIRIN EC 81 MG TAB PO SCH (08:29)
--- NOTE | 2018-07-28 09:37 | PDCARPN ---
Cardiology Progress Note Chief Complaint: chest discomfort Assessment/Plan: Assessment: Patient is a 68 y/o female with history of HLP (on therapy), HTN, and CAD s/p PCI to the proximal LAD in Sep 2017, who presents to [facility] ER with complaints of chest discomfort with ambulation. Patient had been noting some degree of " chest burning" over the past several weeks, but not to a degree that was overtly concerning to the patient. Her son-in-law is a nurse in [employer], and he had voiced some concerns about the symptoms given her history. On Sunday, while walking rapidly up hill to [place] for a [employer], the patient noted severe substernal chest pains to the degree that she had to stop walking several times. No radiation into shoulder, neck, or jaw. Similar location to symptoms that were noted in Sep 2017 prior to LAD PCI, but more severe this time. Compliance with medical therapy has been good, but Effient was stopped after 6 months given (a) pending surgery and (b) severe bruising. Ongoing use of ARB, statin, and low dose ASA therapy. Overnight, no symptoms were noted. No cardiac biomarker elevation has been noted, but ST/T wave changes are noted on telemetry (ST depression). Patient was told that there was mild residual proximal LAD stenosis noted (proximal to the PCI) at the conclusion of her Sep intervention. Review of the films with ~20% stenosis appreciated. Plan: (1) Would proceed with angiography this morning (2) Continue therapy on ASA for life (3) Statins should continue as at present - review of labs with good LDL control noted (4) Should there be in stent stenosis, would recommend lifelong antiplatelet therapy (5) Further recommendations after diagnostic angiography has been completed Subjective: No active cardiovascular complaints this morning Reviewed/Discussed With: hospitalist Objective: Vital Signs (8 Hrs) Temp Pulse Resp BP Pulse Ox 07/28/18 09:12 61 07/28/18 07:32 36.7 C 63 16 118/72 94 07/28/18 04:00 36.8 C 56 L 14 129/69 H 93 Intake/Output (24 Hrs) 07/27/18 07/28/18 07/29/18 05:59 05:59 05:59 Intake Total 340 Balance 340 Intake: Oral (ml) 340 Other: Weight 60.328 kg Number of Voids Toilet 2 Result Diagrams: 07/27/18 13:00 07/27/18 13:00 Cardiac Labs: Cardiac Lab Results (72 Hrs) 07/28/18 07/27/18 03:18 20:56 Troponin I < 0.012 < 0.012 Telemetry: normal sinus rhythm with ST/T wave changes noted - Physical Exam Constitutional: WDWN, healthy appearing, no apparent distress Eyes: PERRL, EOMI Ears, Nose, Mouth, Throat: moist mucous membranes Cardiovascular: regular rate and rhythm, no murmurs, no rubs, no gallops Peripheral Pulses: 2+: dorsalis-pedis (R), dorsalis-pedis (L) Respiratory: clear to auscultate bilat, no crackles, no wheezes Gastrointestinal: normoactive bowel sounds Skin: no rashes, no edema Musculoskeletal: no muscular tenderness Neurologic: AAOx3, CN II-XII grossly intact Psychiatric: cooperative, interactive, following commands ICD10 Worksheet Patient Problems: Problems Problem Status Onset Chest pain Acute
--- NOTE | 2018-07-28 09:38 | PDPROPOC ---
Sedation Plan of Care Sedation Plan of Care: vital signs stable, mental status noted, patient educated of risks, benefits, alternatives, patient can tolerate sedation ASA Classification: ASA 3 Planned drugs: fentanyl, midazolam Mallampati Score: Class 2 Mallampati Reference Image: Patient passed 3-3-2 rule?: Yes
[2018-07-28] MEDS ORDERED: fentaNYL 100 MCG/2 ML INJ ONE (10:03)
[2018-07-28] MEDS ORDERED: LIDOCAINE 1% 300 MG/30 ML SDV ONE (10:03)
[2018-07-28] MEDS ORDERED: HEPARIN 10,000 UNIT/10 ML MDV (1,000 UNIT/ML) ONE (10:04)
[2018-07-28] MEDS ORDERED: VERAPAMIL 5 MG/2 ML VIAL ONE (10:04)
[2018-07-28] MEDS ORDERED: IOPAMIDOL (ISOVUE-370) 150 ML BTL IV ONE (10:04)
[2018-07-28] MEDS ORDERED: MIDAZOLAM 2 MG/2 ML VIAL ONE (10:04)
--- NOTE | 2018-07-28 10:56 | ASMTCMCOM ---
CM Note CM Note Notes: Patient admitted via ED with c/o chest pain. Known CAD. To phlebotomist medical lab assistant today. CM to follow for needs. Likely to dc independent when medically cleared for discharge. Plan: TBD Date Signed: 07/28/2018 10:56 AM Electronically Signed By:Libia Mills RN
--- NOTE | 2018-07-28 11:17 | PDDXCAT ---
Diagnostic Cath Note - . Date: 07/28/18 Project Management It Specialist: Sharath Indication: CCC Class III and IV angina on medical treatment - Procedure Access: right groin Procedure: left heart catheterization, coronary angiography, left ventriculogram - Materials Left Heart Cath size: 6F Left Heart Cath materials: standard multipack (JL4, JR4, pigtail) - Findings-Left Heart Catheterization LM: Medium length vessel with a "napkin ring" focal stenosis in the mid portion of the vessel >70% with haziness. Bifurcation into the LAD and LCX vessels LAD: Medium diameter vessel with mild ostial disease (30%) and moderate in stent stenosis (50%). The first diagonal (D1, principal) continues have ostial disease (80%). Moderate tortuosity to remainder of the LAD. LCX: Medium diameter vessel with several smallish obtuse marginals. Tortuosity was noted from mid vessels to distal. No luminal irregularities were noted. RCA: Medium diameter vessel with supply to the PDA. No luminal irregularities were noted. EDP: 20 mm Hg LVEF: >65% Wall motion: normal Complications: none Estimated blood loss: <50ml Closure method: Angioseal Assessment: Patient is a 68 y/o female with history of CAD s/p PCI to the pLAD in Sep 2017, with return of similar symptoms to pre PCI. Angiography today with critical mid Left Main disease as well as moderate to severe mid in stent stenosis to the LAD. Normal LVEF. Plan: CT surgery consult Intervention: none Patient Problems: Problems Problem Status Onset Chest pain Acute
[2018-07-28] MEDS ORDERED: NITROGLYCERIN 0.4 MG BTL SL PRN (11:47)
[2018-07-28] MEDS ORDERED: ATROPINE SULFATE 1 MG/10 ML SYR IVP PRN (11:47)
--- NOTE | 2018-07-28 13:56 | HOSPPROG ---
Hospitalist Progress Note Assessment/Plan: # CAD, LM lesion not amenable to PCI; hx PCI to LAD 09/2017 - CT surgery consult - cont asa/losartan Subjective: s/p cath today; discussed wtih Dr Early, patient and Objective: Vital Signs Temp Pulse Resp BP Pulse Ox 37.1 C 57 L 16 132/75 H 95 07/28/18 13:19 07/28/18 13:19 07/28/18 13:19 07/28/18 13:19 07/28/18 13:19 07/27/18 07/28/18 07/29/18 05:59 05:59 05:59 Intake Total 340 200 Output Total 0 Balance 340 200 PT 13.3 SEC (12.0-15.0) 07/27/18 13:00 INR 0.99 (0.83-1.16) 07/27/18 13:00 - Time Spent With Patient Time Spent with Patient: greater than 35 minutes Time Spent with Patient: Greater than 35 minutes spent on this patients care, greater than 50% of time spent counseling, educating, and coordinating care regarding the above mentioned plan. - Physical Exam Constitutional: other (lying flat; NAD) ICD10 Worksheet Patient Problems: Problems Problem Status Onset Chest pain Acute
--- NOTE | 2018-07-28 15:18 | PDMN ---
Medical Necessity Medical necessity: [facility] Cardiovascular Surgery or Procedure GRG 68 yo s/p PCI Sep 2017 presents w/ CP. Initially OBS for cardiac workup. Cardiology consulted, concerning for recurrent angina. Urgent heart cath reveals critical mid Left Main disease as well as moderate to severe mid in stent stenosis to the LAD. Cardiothoracic surgery consult ordered. Pt requires additional MN for CT consult, potential CT surgery. Hx CAD, recent bladder suspension and chronic low back pain. Change to IP status 07/28/18 @6234 per MD order
[2018-07-28] MEDS: ACETAMINOPHEN 325 MG TAB PO PRN (17:00)
[2018-07-28] MEDS: PRAVASTATIN SODIUM 10 MG TAB PO SCH (20:04)
[2018-07-28] MEDS: POLYETHYLENE GLYCOL 3350 17 GM PKT PO PRN (20:06)
--- NOTE | 2018-07-28 20:22 | GCON ---
DATE OF CONSULTATION: 07/28/2018 REFERRING PHYSICIAN: Kvng Early MD Patient seen at the request of Dr. Early with the patient's permission. IMPRESSION: 1. Unstable angina pectoris with left main and proximal left anterior descending in-stent stenosis. 2. Status post recent bladder suspension. 3. Chronic low back pain. RECOMMENDATIONS: This patient is to stay in hospital and undergo coronary artery revascularization. We have tentatively scheduled her for Sunday mid morning. Certainly, if she develops further chest pain unresponsive to medical therapy, we would proceed with surgery more urgently. Risks and compli cations, including bleeding, infection, stroke, heart attack, and , all less than 1%, were revie wed with the patient and her . She agrees to stay for surgery. CHIEF COMPLAINT: Chest pain. HISTORY OF CHIEF COMPLAINT: This is a 68-year-old, very active lady, underwent stenting to her LAD i n September. She had recurrence of symptoms with severe chest pain the night before admission, was ad mitted and underwent diagnostic cath which showed ostial LAD and left main stenosis, high-grade with normal LV function. MEDICATIONS: Please see medication reconciliation. ALLERGIES: Adhesive tape, codeine which causes vomiting but not truly allergic. FAMILY HISTORY: Noncontributory. SOCIAL HISTORY: She quit smoking over 40 years ago. She drinks wine occasionally. She is active, s kis, bikes and runs. She is a retired teacher. Her was present and accompanied her. REVIEW OF SYSTEMS: All 10-point systems were conducted and were negative except for HPI. PHYSICAL EXAMINATION: VITAL SIGNS: Blood pressure 130/76, respirations 14. HEENT: Normocephalic, PERRLA, EOMI. NECK: Without bruit, adenopathy, or thyromegaly. HEART: Rate regular without murmur , S3, or S4. LUNGS: Clear. ABDOMEN: Soft, nontender. Bowel sounds are active. RECTAL AND GENITA L: Deferred. NEUROLOGIC: She is grossly intact. /[id number]/MODL
[2018-07-28] MEDS: LORazepam 1 MG TAB PO PRN (22:19)
[2018-07-29] MEDS: ASPIRIN EC 81 MG TAB PO SCH (08:13)
[2018-07-29] MEDS: LOSARTAN POTASSIUM 25 MG TAB PO SCH ×2 (08:13→22:04)
--- NOTE | 2018-07-29 08:40 | HOSPPROG ---
Hospitalist Progress Note Assessment/Plan: # CAD, unstable angina with a LM lesion not amenable to PCI - hx PCI to LAD 09/2017 - plan CABG tomorrow - cont asa/losartan Subjective: no CP overnight Objective: Vital Signs Temp Pulse Resp BP Pulse Ox 36.4 C 61 16 120/70 92 07/29/18 07:31 07/29/18 07:31 07/29/18 07:31 07/29/18 07:31 07/29/18 07:31 07/28/18 07/29/18 07/30/18 05:59 05:59 05:59 Intake Total 1875 Balance 1875 PT 13.3 SEC (12.0-15.0) 07/27/18 13:00 INR 0.99 (0.83-1.16) 07/27/18 13:00 high risk needing major surgery with unstable angina - Physical Exam Constitutional: no apparent distress, appears nourished Cardiovascular: regular rate and rhythym, no murmur, rub, or gallop Respiratory: no respiratory distress, no rales or rhonchi, clear to auscultation Gastrointestinal: normoactive bowel sounds, soft, non-tender abdomen, no palpable masses ICD10 Worksheet Patient Problems: Problems Problem Status Onset Chest pain Acute
[2018-07-29] MEDS ORDERED: BISACODYL 10 MG SUPP PR PRN (08:46)
[2018-07-29] MEDS ORDERED: LACTULOSE 20 GM/30 ML UDCUP PO PRN (08:46)
[2018-07-29] MEDS ORDERED: MAGNESIUM HYDROXIDE 30 ML UDCUP PO PRN (08:46)
--- NOTE | 2018-07-29 09:28 | PDCARPN ---
Cardiology Progress Note Chief Complaint: Patient is doing well today. CT surgery saw the patient yesterday to discuss CABG Assessment/Plan: Assessment: 07-29-18 Patient doing well today. No cardiovascular complaints. Pre operative testing is being performed, and patient is scheduled for surgery tomorrow. 07-28-18 Patient is a 68 y/o female with history of HLP (on therapy), HTN, and CAD s/p PCI to the proximal LAD in Sep 2017, who presents to [facility] with complaints of chest discomfort with ambulation. Patient had been noting some degree of " chest burning" over the past several weeks, but not to a degree that was overtly concerning to the patient. Her son-in-law is a nurse in [facility], and he had voiced some concerns about the symptoms given her history. On Sunday, while walking rapidly up hill to [place] for a [employer], the patient noted severe substernal chest pains to the degree that she had to stop walking several times. No radiation into shoulder, neck, or jaw. Similar location to symptoms that were noted in Sep 2017 prior to LAD PCI, but more severe this time. Compliance with medical therapy has been good, but Effient was stopped after 6 months given (a) pending surgery and (b) severe bruising. Ongoing use of ARB, statin, and low dose ASA therapy. Overnight, no symptoms were noted. No cardiac biomarker elevation has been noted, but ST/T wave changes are noted on telemetry (ST depression). Patient was told that there was mild residual proximal LAD stenosis noted (proximal to the PCI) at the conclusion of her Sep intervention. Review of the films with ~20% stenosis appreciated. Plan: (1) CT surgery will take over patient care post CABg (2) Would arrange for patient to be seen by [facility] 2 weeks post surgery (3) Statins should continue in light of the CAD that is noted (4) ASA therapy for life is recommended (post surgery) Subjective: No CV complaints Reviewed/Discussed With: hospitalist Objective: Vital Signs (8 Hrs) Temp Pulse Resp BP Pulse Ox 07/29/18 07:31 36.4 C 61 16 120/70 92 07/29/18 04:00 36.6 C 65 14 110/65 93 Intake/Output (24 Hrs) 07/28/18 07/29/18 07/30/18 05:59 05:59 05:59 Intake Total 1874 Balance 187 Intake: Oral (ml) 1874 Other: Number of Voids Toilet 2 Result Diagrams: 07/27/18 13:00 07/27/18 13:00 Telemetry: normal sinus rhythm with rates of 80-85 bpm (ST/T wave changes are noted) - Physical Exam Constitutional: WDWN, healthy appearing, no apparent distress Eyes: PERRL, EOMI Ears, Nose, Mouth, Throat: moist mucous membranes Cardiovascular: regular rate and rhythm, no murmurs, no rubs, no gallops, pulses symmetric bilat, No jugular vein distention Peripheral Pulses: 2+: dorsalis-pedis (R), dorsalis-pedis (L) Respiratory: clear to auscultate bilat Gastrointestinal: normoactive bowel sounds Skin: no rashes, no edema Musculoskeletal: no muscular tenderness Neurologic: AAOx3, CN II-XII grossly intact Psychiatric: cooperative, interactive, following commands ICD10 Worksheet Patient Problems: Problems Problem Status Onset Chest pain Acute
[2018-07-29] MEDS: SENNOSIDES/DOCUSATE SODIUM TAB PO SCH ×2 (09:43→22:04)
[2018-07-29] MEDS ORDERED: DOBUTamine/DEXTROSE 250 ML IV SCH ×2 (10:00→15:30)
--- NOTE | 2018-07-29 11:52 | ASMTCMCOM ---
CM Note CM Note Notes: Patient scheduled for CABG tomorrow. Case Management will follow post-operatively for discharge planning. Date Signed: 07/29/2018 11:51 AM Electronically Signed By:Shannan Whitley RN
--- NOTE | 2018-07-29 15:09 | PDSURGCRDT ---
CardioThoracic Surgery Note - Objective Objective: Vital Signs Temp Pulse Resp BP Pulse Ox 36.4 C 63 12 122/82 H 92 07/29/18 07:31 07/29/18 11:42 07/29/18 11:42 07/29/18 11:42 07/29/18 11:42 07/28/18 07/29/18 07/30/18 05:59 05:59 05:59 Intake Total 1875 Balance 1875 Exam Temp Pulse Resp BP Pulse Ox 36.4 C 63 12 122/82 H 92 07/29/18 07:31 07/29/18 11:42 07/29/18 11:42 07/29/18 11:42 07/29/18 11:42 Text Box - Additional Text Additional Text: I met with Edilia Ramirez today. We reviewed her coronary anatomy and discussed the indication for CABG. Risks, benefits alternatives reviewed. Pt agrees to proceed. Surgery planned for noon tomorrow.
[2018-07-29] MEDS ORDERED: CHLORHEXIDINE GLUC HIBICLENS 118 ML BTL TP SCH (21:00)
[2018-07-29] MEDS: POLYETHYLENE GLYCOL 3350 17 GM PKT PO PRN (21:59)
[2018-07-29] MEDS: LORazepam 1 MG TAB PO PRN (22:03)
[2018-07-29] MEDS: PRAVASTATIN SODIUM 10 MG TAB PO SCH (22:04)
[2018-07-30] MEDS ORDERED: PROTAMINE SULFATE 50 MG/5 ML VIAL IVP ONE (07:35)
[2018-07-30] MEDS ORDERED: CALCIUM CHLORIDE 1 GM/10 ML INJ ONE ×2 (07:35→07:38)
[2018-07-30] MEDS ORDERED: MILRINONE/DEXTROSE/100 ML BAG IV ONE (07:35)
[2018-07-30] MEDS ORDERED: niCARdipine/NACL/200 ML BAG IV ONE ×2 (07:36→17:08)
[2018-07-30] MEDS ORDERED: HEPARIN 10,000 UNIT/10 ML MDV (1,000 UNIT/ML) ONE ×2 (07:36→07:39)
[2018-07-30] MEDS ORDERED: NA BICARBONATE 50 MEQ/50 ML VIAL ONE ×2 (07:36→17:42)
[2018-07-30] MEDS ORDERED: DOPamine/DEXTROSE 400 MG/250 ML BAG IV ONE (07:36)
[2018-07-30] MEDS ORDERED: ceFAZolin 1 GM VIAL ONE (07:37)
[2018-07-30] MEDS ORDERED: SODIUM BICARBONATE 50 MEQ/50 ML SYR ONE (07:37)
[2018-07-30] MEDS ORDERED: AMIODARONE HCL 150 MG/3 ML VIAL ONE ×2 (07:37→07:39)
[2018-07-30] MEDS ORDERED: NITROGLYCERIN/D5W 50 MG/250 ML BOTTLE IV ONE (07:37)
[2018-07-30] MEDS ORDERED: ADENOSINE 6 MG/2 ML VIAL ONE (07:37)
[2018-07-30] MEDS ORDERED: LIDOCAINE 2% 100 MG/5 ML SYR ONE (07:38)
[2018-07-30] MEDS ORDERED: ALBUMIN 5% 250 ML BOTTLE IV ONE ×3 (07:38→18:31)
[2018-07-30] MEDS ORDERED: CITRATE DEXTROSE SOLN 500 ML BAG ONE (07:39)
[2018-07-30] MEDS ORDERED: methylPREDNISolone SOD SUCC 1 GM/8 ML VIAL ONE (07:39)
[2018-07-30] MEDS ORDERED: MAGNESIUM SULFATE 1 GM/2 ML VIAL ONE (07:39)
[2018-07-30] MEDS ORDERED: MUPIROCIN 2% 22 GM OINT NS ONE (10:00)
[2018-07-30] MEDS ORDERED: PHENYLEPHRINE HCL 50 MG in NS 250 ML IV ONE (10:00)
[2018-07-30] MEDS ORDERED: VERAPAMIL 5 MG, NITROGLYCERIN 2.5 MG, HEPARIN 500 UNIT, SODIUM BICARBONATE 0.2 MEQ in L... MISC ONE (10:00)
[2018-07-30] MEDS ORDERED: PAPAVERINE HCL 60 MG in NS 100 ML IV ONE (10:00)
[2018-07-30] MEDS ORDERED: MANNITOL 25% 12.5 GM/50 ML VIAL IVP ONE (10:00)
[2018-07-30] MEDS ORDERED: NOREPINEPHRINE BITARTRATE 16 MG in NS 250 ML IV ONE (10:00)
[2018-07-30] MEDS ORDERED: DOBUTamine 500 MG in D5W 250 ML IV SCH (10:00)
[2018-07-30] MEDS ORDERED: DOBUTamine/DEXTROSE 250 ML IV SCH (10:00)
[2018-07-30] MEDS ORDERED: INSULIN REGULAR HUMAN 100 UNIT in NS 100 ML IV ONE (10:00)
[2018-07-30] MEDS ORDERED: CITRATE DEXTROSE SOLN 500 ML BAG MISC ONE (10:00)
[2018-07-30] MEDS ORDERED: ceFAZolin 2 GM/DEXTROSE 100 ML IV ONE (10:00)
[2018-07-30] MEDS ORDERED: AMINOCAPROIC ACID 5 GM/20 ML VIAL IV ONE (10:00)
[2018-07-30] MEDS ORDERED: CARDIOPLEGIC SOLUTION 1,052.8 ML PF ONE (10:00)
--- NOTE | 2018-07-30 10:58 | PDHPUP ---
History & Physical Update H&P update statement: This history and physical update is based on an assessment of the patient which was completed after admission or registration (within 24 hours), but prior to the surgery/procedure. H&P update: no change in patient's condition since H&P completed
[2018-07-30] MEDS ORDERED: PAPAVERINE HCL 60 MG/2 ML SDV ONE (11:01)
[2018-07-30] MEDS ORDERED: LR 1,000 ML IV ONE (11:07)
[2018-07-30] MEDS ORDERED: MIDAZOLAM 2 MG/2 ML VIAL IVP ONE (11:52)
--- NOTE | 2018-07-30 11:52 | PDANEPAE ---
ANE History of Present Illness 68 yo for cabg ANE Past Medical History - Cardiovascular History Hx Hypertension: Yes Hx Chest Pain: Yes Hx Coronary Artery / Peripheral Vascular Disease: Yes - Pulmonary History Hx COPD: No Hx Asthma/Reactive Airway Disease: No Hx Recent Upper Respiratory Infection: No Hx Oxygen in Use at Home: No Hx Sleep Apnea: Yes Sleep Apnea Screening Result - Last Documented: Positive - Endocrine History Hx Diabetes: No - Chronic Pain History Chronic Pain: Yes ANE Review of Systems Review of Systems: - Exercise capacity METS (RN): 4 METS ANE Patient History - Allergies Allergies/Adverse Reactions: codeine Allergy (Mild, Verified 09/25/17 16:15) Vomiting hydroxyzine Allergy (Mild, Verified 07/27/18 15:05) Strange Dreams, Unrestful Sleep adhesive Allergy (Verified 07/27/18 12:48) - Home Medications Home medications: home medication list seen and reviewed Home Medications: Estradiol [Vivelle-Dot 0.075MG (*)] 0.075 mg TD SuWe@0800 09/25/17 [Last Taken 07/24/18] Herbals/Supplements -Info Only 1 ea PO DAILY 09/25/17 [Last Taken Unknown] Losartan Potassium [Cozaar 25 mg (*)] 25 mg PO BID 09/25/17 [Last Taken 07/27/18 ] Multivitamins [Multivitamin (*)] 1 each PO DAILY 09/25/17 [Last Taken 07/27/18] Aspirin EC [Aspirin EC 81 mg (*)] 81 mg PO DAILY 07/27/18 [Last Taken 07/27/18] LORazepam [Ativan (*)] 1 mg PO HS PRN 07/27/18 [Last Taken Unknown] Pravastatin Sodium [Pravachol] 10 mg PO HS 07/27/18 [Last Taken 07/26/18] Testosterone 2.5mg Sl Compound 2.5 mg SL EVERY OTHER DAY 07/27/18 [Last Taken ] - NPO status NPO Since - Liquids (Date): 07/30/18 NPO Since - Liquids (Time): 00:00 NPO Since - Solids (Date): 07/30/18 NPO Since - Solids (Time): 00:00 - Smoking Hx Smoking Status: Never smoked ANE Labs/Vital Signs - Labs Result Diagrams: 07/27/18 13:00 12/08/18 13:00 - Vital Signs Blood Pressure: 128/85 Heart Rate: 62 Respiratory Rate: 16 O2 Sat (%): 98 Height: 5 ft 2 in Weight: 59.7 kg ANE Physical Exam - Airway Neck exam: FROM Mallampati Score: Class 2 Mouth exam: normal dental/mouth exam - Pulmonary Pulmonary: no respiratory distress - Cardiovascular Cardiovascular: regular rate and rhythym - ASA Status ASA Status: III ANE Anesthesia Plan Anesthesia Plan: general endotracheal anesthesia Lines/Monitors: arterial line, central line, ALEX
[2018-07-30] MEDS ORDERED: DEXMEDETOMIDINE HCL 400 MCG in NS 100 ML IV SCH (12:00)
[2018-07-30] MEDS ORDERED: MIDAZOLAM 2 MG/2 ML VIAL ONE (12:05)
[2018-07-30] MEDS ORDERED: fentaNYL 100 MCG/2 ML INJ ONE (12:07)
[2018-07-30] MEDS ORDERED: REMIFENTANIL HCL 1 MG VIAL ONE (12:07)
[2018-07-30] MEDS ORDERED: PROPOFOL/EMULSION 500 MG/50 ML BOTTLE IV ONE (12:07)
[2018-07-30] MEDS ORDERED: DEXAMETHASONE 4 MG/ML VIAL ONE (12:09)
[2018-07-30] MEDS ORDERED: ROCURONIUM 100 MG/10 ML VIAL ONE (12:09)
[2018-07-30] MEDS: ASPIRIN EC 81 MG TAB PO SCH (14:09)
[2018-07-30] MEDS: SENNOSIDES/DOCUSATE SODIUM TAB PO SCH (14:09)
[2018-07-30] MEDS: LOSARTAN POTASSIUM 25 MG TAB PO SCH ×2 (14:09→20:24)
[2018-07-30] MEDS ORDERED: HYDROmorphONE/DILAUDID 2 MG/ML INJ ONE (14:52)
[2018-07-30] MEDS ORDERED: SUGAMMADEX SODIUM 200 MG/2 ML VIAL IVP ONE (16:21)
[2018-07-30] MEDS ORDERED: ONDANSETRON 4 MG/2 ML VIAL ONE (16:21)
--- NOTE | 2018-07-30 16:41 | POSTOPPROG ---
Post Op Note Date of Operation: 07/30/18 Surgeon: Arnoldo Kebede Assistant: Kenisha Richmond Anesthesia: GET(General Endotracheal) Pre-op Diagnosis: CAD with left main dz Post-op Diagnosis: same Procedure: CABGx3 (SHARP-LAD, SVG-OM, SVG-diag) Findings: See OR report Inf/Abcess present in the surg proc area at time of surgery?: No Depth: Organ Space EBL: 100-500 Complications: none Drains: Other (3 chest tubes y'd) Specimen(s): none
[2018-07-30] MEDS ORDERED: ACETAMINOPHEN 650 MG SUPP PR PRN (16:43)
[2018-07-30] MEDS ORDERED: ONDANSETRON DISINTEGRATING 4 MG TAB PO PRN (16:43)
[2018-07-30] MEDS ORDERED: D50W 25 GM/50 ML SYR IVP PRN (16:43)
[2018-07-30] MEDS ORDERED: SODIUM CL NASAL 45 ML BTL EACHNARE PRN (16:43)
[2018-07-30] MEDS ORDERED: PANTOPRAZOLE SODIUM 40 MG VIAL IVP ONE (16:43)
[2018-07-30] MEDS ORDERED: METOCLOPRAMIDE 10 MG/2 ML VIAL IVP PRN (16:43)
[2018-07-30] MEDS ORDERED: MEPERIDINE 25 MG/0.5 ML AMP IVP PRN (16:43)
[2018-07-30] MEDS ORDERED: CEPACOL LOZENGE PO PRN (16:43)
[2018-07-30] MEDS ORDERED: NS 1,000 ML IV SCH (16:45)
[2018-07-30] MEDS ORDERED: INSULIN REGULAR HUMAN 100 UNIT in NS 100 ML IV SCH (17:00)
[2018-07-30] MEDS: POTASSIUM Cl (KCl) 50 ML IV PRN ×2 (17:35→18:05)
[2018-07-30] MEDS ORDERED: NA BICARBONATE 50 MEQ/50 ML VIAL IV ONE (17:45)
[2018-07-30] MEDS: ALBUMIN 5% 250 ML IV PRN ×2 (18:04→18:21)
[2018-07-30] MEDS ORDERED: ALBUMIN 5% 250 ML IV ONE (19:00)
[2018-07-30] MEDS: fentaNYL 100 MCG/2 ML INJ IVP PRN ×6 (20:16→23:55)
--- NOTE | 2018-07-30 20:31 | GOP ---
DATE OF OPERATION: 07/30/2018 SURGEON: Arnoldo Kebede MD FIELD RADIO TECHNICIAN: Prakash Richmond P.A.-c. PREOPERATIVE DIAGNOSIS: Coronary artery disease with unstable angina. POSTOPERATIVE DIAGNOSIS: Coronary artery disease with unstable angina. PROCEDURE PERFORMED: 1. Triple coronary artery bypass grafting. Summary of grafts: Left internal mammary artery to the left anterior descending, saphenous vein graft from the aorta to D1, saphenous vein graft from aorta to M1. 2. Endoscopic vein harvest from the right leg. FINDINGS: The pericardial space was free. The aorta was soft. The vein was good quality 4 mm vesse l. The mammary was good quality but quite a bit smaller in the 1.25 mm range. The target vessels we re adequate. INDICATIONS: This patient has a history of coronary artery disease. She had a stent placed back in September in her LAD. She was initially treated with Effient but discontinued this because of problem s related to anticoagulation. Recently, she redeveloped unstable angina and underwent cardiac cathet erization, which revealed a high-grade left main lesion as well as in-stent restenosis of the LAD. S he was recommended to undergo surgical revascularization. DESCRIPTION OF PROCEDURE: Patient was taken to the operating room and placed on the operating table in supine position. After the induction of general anesthesia and single-lumen endotracheal tube int ubation, patient was prepped and draped sterilely. A standard median sternotomy was performed. Left internal mammary artery was taken down with electrocautery and hemoclips while saphenous vein was rubio rvested from the right leg using a minimally invasive endoscopic technique. The patient was heparini zed. The mammary was divided and found to have good flow. Next, the patient was cannulated with a Sarnes 8.0 soft-flow aortic cannula as well as a dual-stage v enous right atrial cannula. The cardiopulmonary bypass was instituted. The distal vessels were prakash ed for grafting. Next, a cross-clamp was applied. The heart was arrested with 1 L of [place] solut ion. First, the 1st marginal was dissected up behind near the AV groove. It was opened and then myke stomosed end-to-side to a vein graft using running 7-0 Prolene. Next, the 1st diagonal was dissected , opened, and anastomosed end-to-side to a separate vein graft using running 7-0 Prolene. The 2nd vei n graft was anastomosed end-to-side to the diagonal, and next the LAD was opened and anastomosed end- to-side to the left internal mammary artery. This was tacked to the epicardium and allowed to flow f reely. The cross-clamp was removed and a partial occlusion clamp was placed. The vein grafts were e ach anastomosed end-to-side to the ascending artery using running 6-0 Prolene. These were de-aired a nd allowed to flow freely. Left, right, and mediastinal chest tubes were placed as well as 2 ventric ular pacing wires. The patient was from bypass without difficulty. Once the protamine had been administered and hemostasis had been achieved, the heart was then covered with pericardium and fat, and the chest was closed with #6 stainless steel wires. Subcutaneous tissue and skin were close d with running Vicryl suture. The patient tolerated the procedure well. /[id number]/MODL
[2018-07-30] MEDS: FAMOTIDINE 20 MG/NACL 50 ML IV SCH (21:00)
[2018-07-30] MEDS: PRAVASTATIN SODIUM 10 MG TAB PO SCH (21:01)
[2018-07-30] MEDS: CHLORHEXIDINE GLUCONATE 15 ML UDL PO SCH (21:01)
[2018-07-30] MEDS: MUPIROCIN 2% 22 GM OINT NS SCH (21:01)
[2018-07-30] MEDS: ceFAZolin 2 GM/DEXTROSE 100 ML IV SCH (21:45)
[2018-07-30] MEDS: ONDANSETRON 4 MG/2 ML VIAL IVP PRN (23:56)
[2018-07-31] MEDS: fentaNYL 100 MCG/2 ML INJ IVP PRN ×5 (01:27→05:51)
[2018-07-31 03:53] LABS: PLATELET COUNT 160 10^3/uL (150-400)
[2018-07-31] MEDS ORDERED: ALBUMIN 5% 250 ML IV ONE (04:00)
[2018-07-31] MEDS ORDERED: ALBUMIN 5% 250 ML BOTTLE IV ONE (04:15)
[2018-07-31] MEDS: ceFAZolin 2 GM/DEXTROSE 100 ML IV SCH ×3 (05:57→21:30)
--- NOTE | 2018-07-31 06:00 | CPEKG ---
Test Reason : OPEN Blood Pressure : / mmHG Vent. Rate : 065 BPM Atrial Rate : 065 BPM P-R Int : 172 ms QRS Dur : 073 ms QT Int : 466 ms P-R-T Axes : 073 074 059 degrees QTc Int : 485 ms Sinus rhythm Borderline abnrm T, anterolateral leads Confirmed by Dionicio Lazaro ([id number]) on 07/31/2018 5:59:44 AM Referred By: Confirmed By:Dionicio Lazaro
--- NOTE | 2018-07-31 06:23 | SOAPPROG ---
SOAP Progress Note Assessment/Plan: POD #1: CABGx3 (SHARP-LAD, SVG-D1, SVG-OM1), EVH right CAD/unstable angina with normal LVEF s/p CABGx3 - BB/ASA/statin when appropraite - AL/FC out, CTs to suction - Transfer to PCU Acute post-op blood loss anemia - Stable without the need for transfusions Subjective: Pt c/o chest pain when talking and breathing. Denies SOB. Objective: Vital Signs Temp Pulse Resp BP Pulse Ox 36.4 C 68 15 102/57 L 99 07/31/18 00:00 07/31/18 06:00 07/31/18 06:00 07/31/18 06:00 07/31/18 06:00 Laboratory Results 07/31/18 03:30 07/31/18 03:30 07/30/18 07/31/18 08/01/18 05:59 05:59 05:59 Intake Total 1400 2451.2 Output Total 1330 Balance 1400 1121.2 PT 13.3 SEC (12.0-15.0) 07/27/18 13:00 INR 0.99 (0.83-1.16) 07/27/18 13:00 Physical Exam - Physical Exam General Appearance: WD/WN, alert, no apparent distress EENT: No scleral icterus (R), No scleral icterus (L) Neck: normal inspection Respiratory: No respiratory distress Cardiac/Chest: regular rate, rhythm Abdomen: non-tender, soft, No distended Skin: normal color, warm/dry Extremities: No pedal edema Neuro/Psych: no motor/sensory deficits, alert, normal mood/affect, oriented x 3 ICD10 Worksheet Patient Problems: Problems Problem Status Onset Acute blood loss anemia Acute Chest pain Acute Chronic Disease Mgmt/Transitional Care Acute Coronary artery disease Acute S/P CABG x 3 Acute
[2018-07-31] MEDS ORDERED: KETOROLAC 30 MG/1 ML SDV IVP ONE (07:10)
[2018-07-31] MEDS: CHLORHEXIDINE GLUCONATE 15 ML UDL PO SCH (07:28)
[2018-07-31] MEDS: LOSARTAN POTASSIUM 25 MG TAB PO SCH (07:30)
[2018-07-31] MEDS: MUPIROCIN 2% 22 GM OINT NS SCH ×2 (08:53→21:46)
[2018-07-31] MEDS: FAMOTIDINE 20 MG/NACL 50 ML IV SCH (09:01)
[2018-07-31] MEDS: ESTRADIOL VIVELLE 0.075 MG PATCH TD SCH (09:01)
[2018-07-31] MEDS: HYDROCODONE/APAP 5/325 TAB PO PRN ×4 (09:55→20:07)
--- NOTE | 2018-07-31 11:35 | POSTANESTH ---
Post Anesthetic Evaluation Cardiovascular Status: Normal, Stable Respiratory Status: Normal, Stable Level of Consciousness/Mental Status: Can Participate in Eval Pain Control: Adequate, Prn Tx Ordered Nausea/Vomiting Control: Adequate, Prn Tx Ordered Complications Possibly Related to Anesthesia: None Noted
[2018-07-31] MEDS ORDERED: ESTRADIOL VIVELLE 0.075 MG PATCH TD SCH (12:00)
[2018-07-31] MEDS: PANTOPRAZOLE SODIUM 40 MG TAB PO SCH (16:35)
[2018-07-31] MEDS: ASPIRIN 81 MG CHEWABLE TAB PO SCH (16:35)
[2018-07-31] MEDS ORDERED: ASPIRIN 81 MG CHEWABLE TAB TUBE PRN (16:43)
[2018-07-31] MEDS: POLYETHYLENE GLYCOL 3350 17 GM PKT PO PRN (21:28)
[2018-07-31] MEDS: LORazepam 1 MG TAB PO PRN (21:29)
[2018-07-31] MEDS: PRAVASTATIN SODIUM 10 MG TAB PO SCH (21:29)
[2018-07-31] MEDS: traMADol 50 MG TAB PO PRN (21:29)
[2018-08-01] MEDS: HYDROCODONE/APAP 5/325 TAB PO PRN (02:18)
[2018-08-01] MEDS: traMADol 50 MG TAB PO PRN (06:17)
[2018-08-01] MEDS: ceFAZolin 2 GM/DEXTROSE 100 ML IV SCH (06:57)
--- NOTE | 2018-08-01 07:40 | SOAPPROG ---
SOAP Progress Note Assessment/Plan: POD #2: CABGx3 (SHARP-LAD, SVG-D1, SVG-OM1), EVH right CAD/unstable angina with normal LVEF s/p CABGx3 - BB/ASA/statin when appropriate - CTs to be removed to today Acute post-op blood loss anemia - Stable without the need for transfusions DVT prophylaxis - SCDs/heparin SQ Disposition - Plan for home without services Sunday/Sunday Subjective: Still c/o sharp chest pain when taking deep breaths. Happy for tubes to be removed today. Objective: Vital Signs Temp Pulse Resp BP Pulse Ox 36.9 C 71 20 102/61 96 08/01/18 07:15 08/01/18 07:15 08/01/18 07:15 08/01/18 07:15 08/01/18 07:15 Laboratory Results 08/01/18 06:10 07/31/18 08/01/18 08/02/18 05:59 05:59 05:59 Intake Total 2451.2 1445 Output Total 1330 1320 Balance 1121.2 125 PT 13.3 SEC (12.0-15.0) 07/27/18 13:00 INR 0.99 (0.83-1.16) 07/27/18 13:00 Physical Exam - Physical Exam General Appearance: WD/WN, alert, no apparent distress EENT: No scleral icterus (R), No scleral icterus (L) Neck: normal inspection Respiratory: No respiratory distress Cardiac/Chest: regular rate, rhythm Abdomen: non-tender, soft, No distended Skin: normal color, warm/dry Extremities: No pedal edema Neuro/Psych: no motor/sensory deficits, alert, normal mood/affect, oriented x 3 ICD10 Worksheet Patient Problems: Problems Problem Status Onset Acute blood loss anemia Acute Chest pain Acute Chronic Disease Mgmt/Transitional Care Acute Coronary artery disease Acute S/P CABG x 3 Acute
[2018-08-01] MEDS: SENNOSIDES/DOCUSATE SODIUM TAB PO SCH ×2 (09:34→20:17)
[2018-08-01] MEDS: PANTOPRAZOLE SODIUM 40 MG TAB PO SCH (09:35)
[2018-08-01] MEDS: MUPIROCIN 2% 22 GM OINT NS SCH (09:35)
[2018-08-01] MEDS: ASPIRIN 81 MG CHEWABLE TAB PO SCH (09:35)
[2018-08-01] MEDS: ACETAMINOPHEN 325 MG TAB PO PRN ×2 (09:40→18:19)
--- NOTE | 2018-08-01 10:06 | ASMTCMCOM ---
CM Note CM Note Notes: 08/01/2018 Case Management Note Discussed pt with REILLY Chahal. Anticipating d/c on Sunday. PT is recommending cardiac outpatient rehab. Case Management d/c poc: Independent with cardiac outpatient rehab. Case Management available if needs change. Date Signed: 08/01/2018 10:06 AM Electronically Signed By:Lotus Harp RN
[2018-08-01] MEDS ORDERED: AMIODARONE HCL 200 ML IV ONE (18:01)
[2018-08-01] MEDS ORDERED: AMIODARONE HCL 100 ML IV ONE (18:01)
[2018-08-01] MEDS: POLYETHYLENE GLYCOL 3350 17 GM PKT PO PRN (20:16)
[2018-08-01] MEDS: PRAVASTATIN SODIUM 10 MG TAB PO SCH (20:17)
[2018-08-01] MEDS: ONDANSETRON 4 MG/2 ML VIAL IVP PRN (20:42)
[2018-08-02] MEDS ORDERED: AMIODARONE HCL 540 MG in D5W 300 ML IV ONE
[2018-08-02] MEDS: ONDANSETRON 4 MG/2 ML VIAL IVP PRN ×2 (00:01→06:07)
[2018-08-02] MEDS: ACETAMINOPHEN 325 MG TAB PO PRN (00:25)
--- NOTE | 2018-08-02 08:01 | SOAPPROG ---
SOAP Progress Note Assessment/Plan: Assessment: POD#3 CABGx3 (SHARP-LAD, SVG-D1, SVG-OM1), EVH right leg Sx CAD with normal LVEF - Fully revascularized with CABG. Stable early postop course. CTs out. Secondary prevention with baby ASA, BB and statin. Postoperative PAF - Responsive to amiodarone. Sufficient BP to add BB. Antithrombotic prophylaxis w DOAC if recurrent or persistent. Acute expected blood loss anemia - Stable. No transfusions needed. VTE prophylaxis with SCDs/heparin SQ. Plan: Keep TCPWs one more day. Transition to oral amio tonight. Trial scopolamine patch for nausea. Start low dose metoprolol. Inc activity as tolerated. Wean O2. Home bowel regimen. Dispo - Home without services next 1-2 days. 08/02/18 07:57 Subjective: Miserable night, nauseous on amio. A little better this am. Now just tired. Objective: Vital Signs Temp Pulse Resp BP Pulse Ox 36.9 C 65 16 122/76 H 95 08/02/18 04:00 08/02/18 04:00 08/02/18 04:00 08/02/18 04:00 08/02/18 04:00 Laboratory Results 08/01/18 06:10 08/01/18 06:10 08/01/18 08/02/18 08/03/18 05:59 05:59 05:59 Intake Total 1445 1150 Output Total 1320 1020 Balance 125 130 PT 13.3 SEC (12.0-15.0) 07/27/18 13:00 INR 0.99 (0.83-1.16) 07/27/18 13:00 SR restored before MN. Stable SBPs. Borderline suppl O2 req. Balanced I/Os. +5 kg overall. - Pending Discharge Pending Discharge Within 48 Hours: Yes Pending Discharge Date: 08/04/18 Pending Discharge Time: 11:00 Physical Exam - Physical Exam General Appearance: alert, no apparent distress Respiratory: decreased breath sounds (bases), other (chest tube sites moist) Cardiac/Chest: regular rate, rhythm, other (Sternotomy and RLE venotomy CDI) Abdomen: non-tender, soft Skin: warm/dry Extremities: swelling (trace dependent) ICD10 Worksheet Patient Problems: Problems Problem Status Onset Acute blood loss anemia Acute Chest pain Acute Chronic Disease Mgmt/Transitional Care Acute Coronary artery disease Acute S/P CABG x 3 Acute
[2018-08-02] MEDS: HYDROCODONE/APAP 5/325 TAB PO PRN ×3 (08:35→22:43)
[2018-08-02] MEDS ORDERED: SCOPOLAMINE HYDROBROMIDE 1 MG/3 DAYS PATCH TD ONE (09:59)
[2018-08-02] MEDS ORDERED: GLYCERIN ADULT 1 EACH SUPP PR ONE (09:59)
[2018-08-02] MEDS: METOPROLOL TARTRATE 25 MG TAB PO SCH ×2 (11:41→20:32)
[2018-08-02] MEDS: ASPIRIN 81 MG CHEWABLE TAB PO SCH (11:45)
[2018-08-02] MEDS: SENNOSIDES/DOCUSATE SODIUM TAB PO SCH ×2 (11:45→20:31)
[2018-08-02] MEDS: PANTOPRAZOLE SODIUM 40 MG TAB PO SCH (11:45)
[2018-08-02] MEDS: POLYETHYLENE GLYCOL 3350 17 GM PKT PO PRN (20:31)
[2018-08-02] MEDS: PRAVASTATIN SODIUM 10 MG TAB PO SCH (20:32)
[2018-08-02] MEDS ORDERED: AMIODARONE HCL 200 MG TAB PO SCH (21:00)
[2018-08-02] MEDS: LORazepam 1 MG TAB PO PRN (22:43)
[2018-08-03] MEDS: HYDROCODONE/APAP 5/325 TAB PO PRN ×3 (04:45→23:15)
[2018-08-03] MEDS ORDERED: METOPROLOL TARTRATE 5 MG/5 ML INJ IVP ONE (06:00)
--- NOTE | 2018-08-03 08:47 | SOAPPROG ---
SOAP Progress Note Assessment/Plan: Assessment: POD#4 CABGx3 (SHARP-LAD, SVG-D1, SVG-OM1), EVH right leg Sx CAD with normal LVEF - Fully revascularized with CABG. Stable early postop course. CTs out. Secondary prevention with baby ASA and statin. Low dose BB at 12.5 mg PO BID started yesterday. BP dropped 30 mmHg (120->90 from 9pm dose). Intravascularly hypovolemic. Postoperative PAF (2 episodes)- Afib with RVR in 130's last night. Lopressor 5 mg IV given once without resolution and remains in atrial fibrillation. Although responsive to amiodarone gtt-> significant nausea and subsequently dc' d. BERKLEY not excluded. Antithrombotic prophylaxis w DOAC today. Acute expected blood loss anemia - Stable. No transfusions needed. VTE prophylaxis with SCDs, ambulation. Plan: Fluid challenge 500cc NS x 1 now Inc BB to 25 mg PO BID Eliquis 5 mg PO BID Keep TCPWs one more day Wean O2 Dispo - Home without services possibly tomorrow if afib controlled (either converts vs. rate-controlled on DOAC) Objective: Vital Signs Temp Pulse Resp BP Pulse Ox 36.8 C 118 H 20 92/64 L 96 08/03/18 07:52 08/03/18 07:52 08/03/18 07:52 08/03/18 07:52 08/03/18 07:52 Laboratory Results 08/01/18 06:10 08/01/18 06:10 08/02/18 08/03/18 08/04/18 05:59 05:59 05:59 Intake Total 1150 1330 Output Total 1020 2065 Balance 130 -735 PT 13.3 SEC (12.0-15.0) 07/27/18 13:00 INR 0.99 (0.83-1.16) 07/27/18 13:00 General: NAD, sitting upright HEENT: CVL IJ, MMM Respiratory: nasal cannula oxygen at 1L, no wheezes, crackles Cardiac: afib, no m/r/g, 1+ edema GI: soft, nt, nd Extremities:warm, dry Incisions: sternum/right thigh - CDI ICD10 Worksheet Patient Problems: Problems Problem Status Onset Acute blood loss anemia Acute Chest pain Acute Chronic Disease [facility]/Transitional Care Acute Coronary artery disease Acute S/P CABG x 3 Acute
[2018-08-03] MEDS: ASPIRIN 81 MG CHEWABLE TAB PO SCH (08:57)
[2018-08-03] MEDS: PANTOPRAZOLE SODIUM 40 MG TAB PO SCH (08:57)
[2018-08-03] MEDS: METOPROLOL TARTRATE 25 MG TAB PO SCH (08:57)
[2018-08-03] MEDS: SENNOSIDES/DOCUSATE SODIUM TAB PO SCH ×2 (08:57→21:04)
[2018-08-03] MEDS ORDERED: PATCH REMOVAL 1 EA PATCH TD ONE (09:59)
[2018-08-03] MEDS ORDERED: NS 500 ML IV ONE (10:03)
[2018-08-03] MEDS: APIXABAN 5 MG TAB PO SCH ×2 (10:43→21:04)
[2018-08-03] MEDS ORDERED: METOPROLOL TARTRATE 5 MG/5 ML INJ ONE (11:17)
[2018-08-03] MEDS: METOPROLOL TARTRATE 5 MG/5 ML INJ IVP SCH ×3 (11:20→11:59)
[2018-08-03] MEDS: DILTIAZEM 30 MG TAB PO SCH ×2 (15:52→23:16)
[2018-08-03] MEDS: traMADol 50 MG TAB PO PRN (15:52)
[2018-08-03] MEDS: ONDANSETRON 4 MG/2 ML VIAL IVP PRN (17:48)
[2018-08-03] MEDS ORDERED: METOPROLOL TARTRATE 25 MG TAB PO SCH (21:00)
[2018-08-03] MEDS: POLYETHYLENE GLYCOL 3350 17 GM PKT PO PRN (21:04)
[2018-08-03] MEDS: PRAVASTATIN SODIUM 10 MG TAB PO SCH (21:04)
[2018-08-03] MEDS: LORazepam 1 MG TAB PO PRN (23:15)
[2018-08-04] MEDS ORDERED: FUROSEMIDE 20 MG TAB PO ONE (08:53)
[2018-08-04] MEDS ORDERED: METOPROLOL TARTRATE 25 MG TAB PO SCH (09:00)
[2018-08-04] MEDS: SENNOSIDES/DOCUSATE SODIUM TAB PO SCH (09:03)
[2018-08-04] MEDS: PANTOPRAZOLE SODIUM 40 MG TAB PO SCH (09:03)
[2018-08-04] MEDS: HYDROCODONE/APAP 5/325 TAB PO PRN (09:04)
[2018-08-04] MEDS: APIXABAN 5 MG TAB PO SCH (09:04)
[2018-08-04] MEDS: ASPIRIN 81 MG CHEWABLE TAB PO SCH (09:04)
--- NOTE | 2018-08-04 09:30 | SOAPPROG ---
SOAP Progress Note Assessment/Plan: Assessment: POD#5 CABGx3 (SHARP-LAD, SVG-D1, SVG-OM1), EVH right leg Sx CAD with normal LVEF - Fully revascularized with CABG. Stable early postop course. CTs out. Secondary prevention with baby ASA and statin. Postoperative PAF (2 episodes)- Converted to NSR after Lopressor 5 mg IV x3. Started on Cardizem as well. BP stable. Although responsive to amiodarone gtt-> significant nausea and subsequently dc'd. BERKLEY not excluded. Antithrombotic prophylaxis w DOAC. Acute expected blood loss anemia - Stable. No transfusions needed. VTE prophylaxis with SCDs, ambulation. Plan: D/w Alcira Coker Dc Cardizem and change to Lopressor 25 mg PO TID Cont Eliquis 5 mg PO BID x 30 days TCPWs out today Wean O2 if possible, likely will need Home Oxygen Lasix 20 mg PO daily for volume overload, will be sent home on lasix as well Dispo - Home without services today Subjective: Converted to NSR yesterday. Appetite improved. Objective: Vital Signs Temp Pulse Resp BP Pulse Ox 37.5 C 61 12 113/66 96 08/04/18 07:55 08/04/18 07:55 08/04/18 07:55 08/04/18 07:55 08/04/18 07:55 Laboratory Results 08/01/18 06:10 08/01/18 06:10 08/03/18 08/04/18 08/05/18 05:59 05:59 05:59 Intake Total 1330 2000 Output Total 2065 1500 Balance -735 500 PT 13.3 SEC (12.0-15.0) 07/27/18 13:00 INR 0.99 (0.83-1.16) 07/27/18 13:00 General: NAD, sitting upright HEENT: CVL IJ, MMM Respiratory: nasal cannula oxygen at 1L, no wheezes, crackles Cardiac: NSR, no m/r/g, 1+ edema GI: soft, nt, nd Extremities:warm, dry Incisions: sternum/right thigh - CDI ICD10 Worksheet Patient Problems: Problems Problem Status Onset Acute blood loss anemia Acute Chest pain Acute Chronic Disease Mgmt/Transitional Care Acute Coronary artery disease Acute S/P CABG x 3 Acute
--- NOTE | 2018-08-04 10:06 | PDDCSUM ---
Discharge Summary Discharge Summary: DATE OF ADMISSION: 07/27/18 DATE OF DISCHARGE: 08/04/18 DISPOSITION: Home with Home Oxygen ACTIVITY: Instructed on sternal precautions, activity restrictions, and problems to call [facility]. ADMISSION DIAGNOSES: Unstable angina pectoris with left main and proximal left anterior descending in -stent stenosis Status post recent bladder suspension Chronic low back pain DISCHARGE DIAGNOSES: As above plus, Acute blood loss anemia Post-operative atrial fibrillation x 2 Severe nausea secondary to amiodarone use PROCEDURE PERFORMED: 07/30/18 ([facility]) CABGx3 (SHARP-LAD, SVG-D1, SVG-M1), EVH right thigh HISTORY OF PRESENT ILLNESS: This is a 68F very active lady who underwent stenting to her LAD in September. She had recurrence of symptoms with severe chest pain the night before admission and was admitted. Diagnostic cath demonstrated high grade ostial LAD and LM stenosis with a normal LV function. HOSPITAL COURSE BY PROBLEM LIST: Symptomatic CAD with normal LVEF - Required dobutamine and aggressive IVF the first night in the ICU. She was transferred to the PCU on POD#1. She was started on ASA and a statin. Postoperative PAF x 2- First episode was POD#2. She converted with amiodarone, however, she developed severe nausea and poor appetite even with multiple anti- nausea medications. Amiodarone was discontinued. She again developed atrial fibrillation on POD#4 and was asymptomatic. She converted to NSR after Lopressor 5 mg IV x3 and PO Diltiazem. Antithrombotic prophylaxis with Eliquis for 30 days since BERKLEY was not excluded. D/w Dr. Juarez regarding optimal therapy for afib ppx - Lopressor 25 mg PO TID and to discontinue Diltiazem. Acute expected blood loss anemia - Stable. No transfusions needed. PERTINENT DISCHARGE CLINICAL INFORMATION: Sternotomy stable, CDI EVH Site, CDI HR 60 BP 96/56 SpO2 97% 1.5 L pre-op wt 60 kg discharge wt 64 kg WBC 20 Hgb 8.4 Hct 25.3 Plt 169 Na 137 K 4.7 Cr 0.6 CONSULTANTS: [facility] MEDICATIONS ON ADMISSION: Losartan 25 mg PO BID Pravastatin 10 mg PO HS ASA 81 PO daily Multivitamin Herbal Supplements Estradiol/Testosterone Ativan PRN ALLERGIES/SENSITIVITIES: codeine, hydroxyzine, adhesive DISCHARGE MEDICATIONS: STOP these medications: Losartan 25 mg PO BID CONTINUE these medications: Pravastatin 10 mg PO HS ASA 81 PO daily Multivitamin Herbal Supplements Estradiol/Testosterone Ativan PRN NEW medications: Eliquis 5 mg PO BID #30 tabs for minimum 30 days Lopressor 25 mg PO TID #90 tabs, 1 refill Lasix 20 mg PO daily #30 tabs until back to pre-op weight Klor-Con 10 mEq PO daily #30tabs until back to pre-op weight Tramadol 50-100 mg PO [id number] PRN #30 tabs APAP OTC FOLLOW UP APPOINTMENTS: 1. CV surgery: with Dr. Eli at [facility] on 08/16/18 @ 11:15. 2. Cardiology: with Dr. Trotter ([place]) within 4-6 weeks. Appointment to be established during surgical visit. FOLLOW UP TESTING: CXR prior to surgical appointment.
--- NOTE | 2018-08-04 10:36 | PDHOMEO2F ---
Home Oxygen Face to Face Home Orders: I certify that a physician or a nurse practitioner or physician's marketing operations assistant has had a [id number] encounter with this patient on the date of this order due to the diagnosis listed, which relates to the primary reason the patient requires home oxygen. Alternative treatments have been tried, or considered, and deemed ineffective. It is anticipated that supplemental oxygen will result in improvement with treatment. Home oxygen qualifying diagnosis: CAD s/p CABGx3 SpO2 on room air (%): 85 Frequency of home oxygen needed: continuous Home oxygen liters per minute: 1 LPM Home oxygen delivery device: nasal cannula Concentrator: Yes E-tanks for mobility and back up: Yes If ordering portable O2, is the patient mobile in the home?: Yes I certify that, based on these findings, the home oxygen is medically necessary for this patient for the following length of time. Length of time home oxygen needed: 1 month
[2018-08-04 11:50] VITALS: BP 96/56
== END 2018-08-04 15:27 | disposition home or self-care (01) | DRG 234 ==
LOC: F2W 16:15 → OBSVTOIN 07-28 13:54 → F2N 07-30 10:59 → F2W 07-31 12:43
PROVIDERS: ADMIT Student in an Organized Health Care Education/Training Program; ATTEND Thoracic Surgery (Cardiothoracic Vascular Surgery)
DX: I25.110 Atherosclerotic heart disease of native coronary artery with unstable angina pectoris (principal); D62 Acute posthemorrhagic anemia; I48.0 Paroxysmal atrial fibrillation; G89.29 Other chronic pain; I10 Essential (primary) hypertension
CPT/HCPCS: 82435-PO; 82565-PO; 82947-PO; 84132-PO; 84295-PO; 84484-ER; 84520-PO; 85014-PO; 97116-GP; 97161-GP; 97165-GO; 97530-GO; 97530-GP; 97535-GO; C1760; C1768; G0378; G8978-GP-CJ; G8979-GP-CI; G8987-GO-CK; G8988-GO-CI; J0153; J0282; J0690; J1100; J1170; J1250; J1265; J1644; J1815; J1885; J2001; J2150; J2250; J2260; J2370; J2405; J2440; J2704; J2720; J2765; J2930; J3010; J3475; J3480; P9041; Q9967

== ENCOUNTER → 2018-08-16 | Outpatient (CLI) | payer OTHER | LOC: FIMAGING 10:35 | PROVIDERS: ATTEND Thoracic Surgery (Cardiothoracic Vascular Surgery) | DX: J90 Pleural effusion, not elsewhere classified (principal); R91.8 Other nonspecific abnormal finding of lung field; Z95.1 Presence of aortocoronary bypass graft ==